=== PATIENT | female | born 1975 | race Caucasian/White ===

== ENCOUNTER 2018-01-16 12:09 | Observation (INO) ==
--- NOTE | 2018-01-16 12:53 | Emergency Department Note ---
Disposition Clinical Impression: PID (acute pelvic inflammatory disease), Sepsis Abdominal pain Qualifiers: Abdominal location: lower abdomen, unspecified Qualified Code(s): R10.30 - Lower abdominal pain, unspecified Disposition: Admitted As Inpatient Condition: Good Abdominal Pain HPI - General Chief Complaint: ED Abdominal Pain Stated Complaint: CT, LABS Time Seen by Provider: 01/16/18 12:18 Source: patient Mode of arrival: ambulatory Limitations: no limitations Nursing Notes Reviewed: Yes Vital Signs Reviewed: Yes - History of Present Illness HPI Narrative: Ms. Damon is a 42-year-old female presenting to the emergency department today from her PCP's office for abdominal pain. Abdominal pain began yesterday morning across her lower abdomen and suprapubic area; has also had low back pain the pain. Abdominal pain has been constant and nothing seems to make it better or worse; it's location hasn't changed since onset, characteristics of pain haven't changed. She reported suddenly not feeling well yesterday with diffuse body aches described as "flu-like." She reports fever of 101.8 last night. She has been able to tolerate food and water, but has occasional nausea, she has not vomited. This morning her abdominal pain has worsened in intensity. At her PCP's office there was some concern for a UTI but UA reportedly showed no evidence for this and PCP reportedly concerned about surgical abdomen. Denies urinary symptoms including dysuria, hematuria, pyuria , frequency, loss of bladder continence, sensation of incomplete bladder emptying. Reports last PO intake was a few crackers at 8:00 this morning. Reports h/o x 2 and tubal ligation 11 years ago; denies cholecystectomy or appendectomy. Consistency: intermittent Pain Scale: 6 - Related Data Previous Rx's Medication Instructions Recorded Levofloxacin [Levaquin] 500 mg PO DAILY #14 tablet 01/18/18 Oxycodone HCl/Acetaminophen 1 each PO Q6HR PRN 3 Days #12 01/18/18 [Percocet 5-325 mg Tablet] tablet metroNIDAZOLE [Flagyl] 500 mg PO DAILY #14 tablet 01/18/18 Allergies Allergy/AdvReac Type Severity Reaction Status Date / Time Penicillins Allergy Rash Verified 01/18/18 09:19 All systems ED: reviewed and negative except as stated. Review of Systems: As Per HPI Abdominal Pain PMH - Past Medical History Medical history: Reports: no medical history, non-contributory Female Surgical History: Reports: Psychiatric history: Reports: no psych history - Social History Smoking status: Never smoker Alcohol use: Reports: none Drug use: Reports: none Physical Exam - General Limitations: no limitations General appearance: alert, in no apparent distress - Head Head exam: normocephalic - Eye Eye exam: Present: normal appearance, PERRL. Absent: scleral icterus - Neck Neck exam: Present: normal inspection, full ROM - Chest Chest inspection: Present: normal inspection, symmetric chest wall rise - Respiratory Respiratory exam: Present: normal lung sounds bilaterally. Absent: respiratory distress, wheezes, accessory muscle use - Cardiovascular Cardiovascular exam: Present: normal rhythm, tachycardia, normal heart sounds - Abdominal Exam Abdominal exam: Present: soft, other. Absent: rigidity Abdominal tenderness: Present: diffuse Course Vital Signs Temperature 98.8 F 01/16/18 12:14 Pulse Rate 100 01/16/18 12:14 Respiratory Rate 18 01/16/18 12:14 Blood Pressure 105/74 01/16/18 12:14 O2 Sat by Pulse Oximetry 99 01/16/18 12:14 Temperature 99.4 F 01/17/18 11:01 Pulse Rate 92 01/17/18 11:01 Respiratory Rate 16 01/17/18 11:01 Blood Pressure 97/65 01/17/18 11:01 O2 Sat by Pulse Oximetry 99 01/17/18 11:01 Oxygen Delivery Oxygen Delivery Room Air Abdominal Pain - MDM Narrative Medical decision making narrative: UA shows no evidence for urinary tract infection. CT abdomen pelvis with IV contrast shows... ultrasound abd pelvis with Doppler ordered and is pending [facility] consulted (Destinee Zaragoza, reservations and ticketing agent) to evaluate patient for what appears to be hydrosalpinx and possible endometritis Gen. surgery (Dr. Jimenez) consultation to evaluate for possible developing appendicitis - Lab Data Result diagrams: 01/17/18 05:07 01/17/18 05:07 Lab Results 01/16/18 01/16/18 01/16/18 Range/Units 13:19 13:19 13:23 WBC 20.2 H (4.3-11.1) K/mcL RBC 4.58 (3.82-4.97) M/mcL Hgb 14.3 (11.5-15.4) g/dL Hct 40.8 (35.3-44.9) % MCV 89.1 (83.0-100.0) fL MCH 31.2 (28.0-33.3) pg MCHC 35.0 (31.6-35.5) g/dL RDW 12.1 (11.5-14.5) % Plt Count 174 (140-400) K/mcL MPV 11.8 (9.4-12.4) fL Immature Gran % 0.8 (0-4) % Seg Neutrophils % 88.1 % Lymphocytes % 4.6 % Monocytes % 6.4 % Eosinophils % 0.0 % Basophils % 0.1 % Neutrophils # 17.8 H (1.6-8.9) K/mcL Lymphocytes # 0.9 (0.6-4.6) K/mcL Monocytes # 1.3 (0.0-1.3) K/mcL Eosinophils # 0.0 (0.0-0.6) K/mcL Basophils # 0.0 (0.0-0.2) K/mcL Sodium 136 (136-145) mEq/L Potassium 3.3 L (3.5-5.1) mEq/L Chloride 103 (98-107) mEq/L Carbon Dioxide 22 L (23-29) mEq/L BUN 8 (6-20) mg/dL Creatinine 0.86 (0.60-1.20) mg/dL Est GFR ( Amer) > 60 (> 60) Est GFR (Non-Af Amer) > 60 (> 60) BUN/Creatinine Ratio 9 (6-26) Glucose 105 (70-105) mg/dL Calculated Osmolality 281 (280-300) Lactic Acid (0.5-2.2) mmol/L Calcium 9.6 (8.6-10.3) mg/dL Total Bilirubin 1.6 H (0.3-1.0) mg/dL Direct Bilirubin 0.3 H (0.0-0.2) mg/dL Indirect Bilirubin 1.3 H (0.0-1.2) mg/dL AST 14 (13-39) Units/L ALT 14 (7-52) Units/L Alkaline Phosphatase 55 (34-104) Units/L Serum Total Protein 7.7 (6.4-8.9) g/dL Albumin 4.7 (3.5-5.7) g/dL Globulin 3.0 (2.4-3.5) g/dL Albumin/Globulin Ratio 1.6 (1.1-2.2) Lipase 12 (11-82) Units/L Urine Color Yellow (Yellow) Urine Clarity Clear (Clear) Urine pH 6.5 (5.0-8.0) pH Units Ur Specific [place] 1.005 L (1.010-1.025) Urine Protein Negative (Neg-Trace) mg/dL Urine Glucose (UA) Normal (Normal) mg/dL Urine Ketones Trace H (Negative) mg/dL Urine Blood Trace H (Negative) Urine Nitrite Negative (Negative) Urine Bilirubin Negative (Negative) Urine Urobilinogen Normal (Normal) mg/dL Ur Leukocyte Esterase Negative (Negative) Urine Microscopic RBC 0-3 (0-3) per hpf Urine Microscopic WBC 0-3 (0-3) per hpf Ur Squamous Epith Cells Moderate H (None-Few) per lpf Urine Bacteria CERTIFIED PEDIATRIC NURSE PRACTITIONER Ur Culture Indicated? NO (NO) Meghan species DNA (Not Detect) Chlam trachomat DNA PCR (Not Detect) Gardnerella DNA Probe (Not Detect) N.gonorrhoeae DNA (PCR) (Not Detect) Trichomonas DNA Probe (Not Detect) 01/16/18 01/16/18 01/16/18 Range/Units 16:07 16:07 17:41 WBC (4.3-11.1) K/mcL RBC (3.82-4.97) M/mcL Hgb (11.5-15.4) g/dL Hct (35.3-44.9) % MCV (83.0-100.0) fL MCH (28.0-33.3) pg MCHC (31.6-35.5) g/dL RDW (11.5-14.5) % Plt Count (140-400) K/mcL MPV (9.4-12.4) fL Immature Gran % (0-4) % Seg Neutrophils % % Lymphocytes % % Monocytes % % Eosinophils % % Basophils % % Neutrophils # (1.6-8.9) K/mcL Lymphocytes # (0.6-4.6) K/mcL Monocytes # (0.0-1.3) K/mcL Eosinophils # (0.0-0.6) K/mcL Basophils # (0.0-0.2) K/mcL Sodium (136-145) mEq/L Potassium (3.5-5.1) mEq/L Chloride (98-107) mEq/L Carbon Dioxide (23-29) mEq/L BUN (6-20) mg/dL Creatinine (0.60-1.20) mg/dL Est GFR ( Amer) (> 60) Est GFR (Non-Af Amer) (> 60) BUN/Creatinine Ratio (6-26) Glucose (70-105) mg/dL Calculated Osmolality (280-300) Lactic Acid 1.6 (0.5-2.2) mmol/L Calcium (8.6-10.3) mg/dL Total Bilirubin (0.3-1.0) mg/dL Direct Bilirubin (0.0-0.2) mg/dL Indirect Bilirubin (0.0-1.2) mg/dL AST (13-39) Units/L ALT (7-52) Units/L Alkaline Phosphatase (34-104) Units/L Serum Total Protein (6.4-8.9) g/dL Albumin (3.5-5.7) g/dL Globulin (2.4-3.5) g/dL Albumin/Globulin Ratio (1.1-2.2) Lipase (11-82) Units/L Urine Color (Yellow) Urine Clarity (Clear) Urine pH (5.0-8.0) pH Units Ur Specific [place] (1.010-1.025) Urine Protein (Neg-Trace) mg/dL Urine Glucose (UA) (Normal) mg/dL Urine Ketones (Negative) mg/dL Urine Blood (Negative) Urine Nitrite (Negative) Urine Bilirubin (Negative) Urine Urobilinogen (Normal) mg/dL Ur Leukocyte Esterase (Negative) Urine Microscopic RBC (0-3) per hpf Urine Microscopic WBC (0-3) per hpf Ur Squamous Epith Cells (None-Few) per lpf Urine Bacteria Ur Culture Indicated? (NO) Meghan species DNA Not Detected (Not Detect) Chlam trachomat DNA PCR NOT DETECTED (Not Detect) Gardnerella DNA Probe Not Detected (Not Detect) N.gonorrhoeae DNA (PCR) NOT DETECTED (Not Detect) Trichomonas DNA Probe Not Detected (Not Detect)
[2018-01-16] MEDS ORDERED: Isovue-370 500 ML INFUS..BTL IV ONE (13:19)
[2018-01-16] MEDS ORDERED: Ondansetron 4 MG/2 ML VIAL IVP ONE (13:19)
[2018-01-16] MEDS ORDERED: *HR* FentaNYL (PF) 100 MCG/2 ML VIAL IVP ONE ×2 (13:19→15:27)
[2018-01-16] MEDS ORDERED: 0.9 % Sodium Chloride 1,000 ML IVC ONE ×2 (13:19→17:32)
[2018-01-16 13:35] LABS: Bilirubin,Urine Negative (Negative); Blood,Urine Trace (Negative); Clarity,Urine Clear (Clear); Color,Urine Yellow (Yellow); Glucose,Urine (UA) Normal (Normal); Ketones,Urine Trace mg/dL (Negative); Leukocyte Esterase,Urine Negative (Negative); Nitrite,Urine Negative (Negative); PH,Urine 6.5 pH Units (5.0-8.0); Protein,Urine Negative (Neg-Trace); Specific Gravity,Urine 1.005 (1.010-1.025); Urobilinogen,Urine Normal (Normal)
[2018-01-16 13:53] LABS: RBC,Urine 0-3 per hpf (0-3); Squamous Epithelial Cell,Urine Moderate per lpf (None-Few); WBC,Urine 0-3 per hpf (0-3)
[2018-01-16 14:02] LABS: Basophils % 0.1 %; Hematocrit 40.8 % (35.3-44.9); Hemoglobin 14.3 g/dL (11.5-15.4); Immature Granulocytes % 0.8 % (0-4); Lymphocytes # 0.9 K/mcL (0.6-4.6); Lymphocytes % 4.6 %; Mean Corpuscular Hemoglobin 31.2 pg (28.0-33.3); Mean Corpuscular Volume 89.1 fL (83.0-100.0); Mean Platelet Volume 11.8 fL (9.4-12.4); Monocytes # 1.3 K/mcL (0.0-1.3); Monocytes % 6.4 %; Neutrophils # 17.8 K/mcL (1.6-8.9); Platelet Count 174 K/mcL (140-400); Red Blood Count 4.58 M/mcL (3.82-4.97); Red Cell Distribution Width 12.1 % (11.5-14.5); Segmented Neutrophils % 88.1 %
[2018-01-16 14:36] LABS: Alanine Aminotransferase 14 Units/L (7-52); Albumin 4.7 g/dL (3.5-5.7); Albumin/Globulin Ratio 1.6 (1.1-2.2); Alkaline Phosphatase 55 Units/L (34-104); Aspartate Amino Transferase 14 Units/L (13-39); BUN/Creatinine Ratio 9 (6-26); Bilirubin,Direct 0.3 mg/dL (0.0-0.2); Bilirubin,Indirect 1.3 mg/dL (0.0-1.2); Bilirubin,Total 1.6 mg/dL (0.3-1.0); Blood Urea Nitrogen 8 mg/dL (6-20); Calcium 9.6 mg/dL (8.6-10.3); Carbon Dioxide 22 mEq/L (23-29); Chloride 103 mEq/L (98-107); Glucose 105 mg/dL (70-105); Lipase 12 Units/L (11-82); Osmolality,Calculated 281 (280-300); Potassium 3.3 mEq/L (3.5-5.1); Sodium 136 mEq/L (136-145); Total Protein 7.7 g/dL (6.4-8.9); eGFR For African Americans > 60 (> 60); eGFR For Non-African Americans > 60 (> 60)
--- NOTE | 2018-01-16 16:27 | OB/GYN Consult Note ---
Date of Encounter: 01/16/18 Time of Encounter: 16:24 Assessment and Plan (1) Pelvic pain Current Visit: Yes Status: Acute Pelvic U/S confirmed bilateral hydrosalpinx Admit for IV antibiotics Recheck CBC in am (2) Vaginal discharge Current Visit: Yes Status: Acute GC/CL swab collected and sent Vaginosis panel collected and sent - negative (3) Endometritis Current Visit: Yes Status: Acute Clindamycin q 8 hr Gentamycin IVPB Recheck CBC in am (4) Hydrosalpinx Current Visit: Yes Status: Acute History of Present Illness Consult date: 01/16/18 Requesting physician: Morenita Bar Reason for consult: pelvic pain Chief complaint: pelvic pain History of present illness: Ms. Damon is a 42-year-old female who presents with complaints of lower abdominal/pelvic pain that began at 5 AM yesterday morning. She denies known history of sexual transmitted infections. She denies vaginal discharge. She reports last intercourse was 2 nights ago. She has been monogamous with her for the past several years. She states when the pain began it was on the lower right side and she thought that she was having ovulatory pains as she sometimes does. However, as the day progressed the pain increased in severity. She reports severe pain with movement, ambulation. She states that the only thing that has relieved her pain is the fentanyl the emergency department gave her. Past Med Surg Social Fam HX - Past Medical History Medical history: no medical history, non-contributory Psychiatric history: no psych history - Social History Smoking Status: Never smoker Smokeless Tobacco Status: No Alcohol use: none Drug use: none Medications and Allergies No Known Home Drugs 01/16/18 [History] 3 Allergy/AdvReac Type Severity Reaction Status Date / Time Penicillins Allergy Rash Verified 01/16/18 12:17 Review of Systems All Systems: reviewed and no additional remarkable complaints except as stated Exam - Vital Signs Vital signs: Initial Vital Signs Temp Pulse Resp BP Pulse Ox 98.8 F 100 18 105/74 99 01/16/18 12:14 01/16/18 12:14 01/16/18 12:14 01/16/18 12:14 01/16/18 12:14 - Constitutional Constitutional: well developed, well nourished, average body habitus, moderate distress - HEENT HEENT: Normocephaly, Mucus Membranes Moist - Neck Neck exam: full ROM - Lungs Respiratory exam: CTAB - Cardiovascular Cardiovascular exam: RRR, +S1, +S2 - Abdomen Abdomen: Present: bowel sounds normal, guarding noted - Extremities Extremities exam: normal inspection, radial pulses palpable and symmetrical - Vulva Vulva: bilateral: normal - Vagina Vagina: Present: discharge - Cervix Cervix: Present: discharge - Uterus Uterus exam: Present: normal size, tender - Adnexa Adnexa: bilateral: tenderness - Anus/Rectum Anus/Rectum: Present: normal perianal skin Results Result Diagrams: 01/16/18 13:19 01/16/18 13:19 Abnormal lab results WBC 20.2 K/mcL (4.3-11.1) H 01/16/18 13:19 Neutrophils # 17.8 K/mcL (1.6-8.9) H 01/16/18 13:19 Potassium 3.3 mEq/L (3.5-5.1) L 01/16/18 13:19 Carbon Dioxide 22 mEq/L (23-29) L 01/16/18 13:19 Total Bilirubin 1.6 mg/dL (0.3-1.0) H 01/16/18 13:19 Direct Bilirubin 0.3 mg/dL (0.0-0.2) H 01/16/18 13:19 Indirect Bilirubin 1.3 mg/dL (0.0-1.2) H 01/16/18 13:19 Ur Specific [place] 1.005 (1.010-1.025) L 01/16/18 13:23 Urine Ketones Trace mg/dL (Negative) H 01/16/18 13:23 Urine Blood Trace (Negative) H 01/16/18 13:23 Ur Squamous Epith Cells Moderate per lpf (None-Few) H 01/16/18 13:23 All other labs normal. Consult Discharge Plan - Plan Referrals: aDniel Coronado MD [Primary Care Provider] -
[2018-01-16] MEDS ORDERED: Gentamicin 250 MG in 0.9 % Sodium Chloride 100 ML IVPB ONE (16:52)
--- NOTE | 2018-01-16 17:08 | General Surg History&Physical ---
<Mark Paulson - Last Filed: 01/16/18 17:00> Date of Encounter: 01/16/18 Time of Encounter: 04:30 Assessment and Plan (1) Pelvic pain Status: Acute CT of the abdomen/pelvis reveals hydrosalpinx with possible left-sided superimposed infection/pyosalpinx and PID. In addition, CT is also suggestive of endometritis most likely secondary to PID. Patient was put on clindamycin and gentimicn in the ED. She does meet Sepsis criteria due to WBC of 20.2, tachycardia at 111, and suspected PID as source of infection . No significant inflammatory changes seen with the appendix. - Continue IV clindamycin and gentamicin. - Serial abdominal exams. - G/C labs pending. - NPO - IV fluids. - Pain control with toradol IV and oxycodone SL. - Control nausea with zofran. Abdomen/Pelvis CT 01/16/18 13:19 IMPRESSION: 1. Dilated tortuous curvilinear structures in the bilateral adnexal regions significantly more pronounced on the left where there is associated wall/rim enhancement and adjacent inflammatory stranding. Findings most consistent with hydrosalpinx with possible left-sided superimposed infection/pyosalpinx and PID. Inflammatory changes extend to involve the adjacent left ovary. Recommend further evaluation with pelvic ultrasound. 2. Appendix is relatively fluid-filled and mildly dilated along its mid to distal aspect where there is slight wall thickening/enhancement but no significant adjacent inflammatory stranding. Findings may represent early acute appendicitis in appropriate clinical setting. D/ / Sean Jacobs MD / Sean Jacobs MD Interpreting Provider: Sean Jacobs MD (2) Hypokalemia Status: Acute Potassium level at 3.3. - 40 meq potassium IV. (3) DVT prophylaxis Status: Acute SCDs. History of Present Illness Chief complaint: Abdominal pain HPI: Ms. Damon is a 42 year old female with no significant PMH and a PSH of two c- sections (last one 2006) with b/l tubal ligation that presents for abdominal pain and nausea. Patient says pain started 5:00 AM yesterday morning. She describes it as an achy pain which is exacerbated with movement. She says it is located in the right and left lower quadrant, with the R worse than the left. She rates the pain as a 7/10 in severity. She admits to nausea but denies any vomiting. She denies any dysuria or hematuria. She denies any vaginal discharge. Admits to constipation for past 2 days. She admits to a fever of 101.8. Denies any chest pain or shortness of breath. Past Med Surg Social Fam HX - Past Medical History Medical history: no medical history, non-contributory Psychiatric history: no psych history - Social History Smoking Status: Never smoker Smokeless Tobacco Status: No Alcohol use: none Drug use: none Medications and Allergies Levofloxacin [Levaquin] 500 mg PO DAILY #14 tablet 01/18/18 [Rx] Oxycodone HCl/Acetaminophen [Percocet 5-325 mg Tablet] 1 each PO Q6HR PRN 3 Days #12 tablet 01/18/18 [Rx] metroNIDAZOLE [Flagyl] 500 mg PO DAILY #14 tablet 01/18/18 [Rx] 3 Allergy/AdvReac Type Severity Reaction Status Date / Time Penicillins Allergy Rash Verified 01/18/18 09:19 Review of Systems All systems PM: The remainder of the systems were reviewed and are negative - Constitutional chills, fever(s) - Cardiovascular no chest pain, no dyspnea, no dyspnea on exertion - Respiratory no dyspnea - Gastrointestinal abdominal pain, constipation, nausea, no diarrhea, no hematochezia, no loose stools, no melena, no vomiting - Genitourinary Genitourinary: no dysuria, no hematuria, no vaginal discharge General Surgery Exam VITAL SIGNS: Reviewed. See [facility] GENERAL: no apparent distress. HEENT: [Normocephalic, PER, EOMi, oropharynx pink/moist, no JVD noted.] CV: b/l rad pulses 2+, RRR, no murmurs or gallops, no JVD RESPIRATORY: CTAB without wheezes, rales, or rhonchi ABD: soft, moderate tenderness in the right and left lower quadrant along with suprapubic tenderness, negative bazan's sign, negative McBurney's, negative obturator sign, no rebound/guarding/rigidity, no peritoneal signs. B/L adnexal tenderness with the R worse than the L. Normal bowel sounds. EXTREMITY: grossly normal motor function, no pedal edema, peripheral pulses 2+ b /l NEUROLOGIC EXAM: AOx3, obeys commands, no speech deficits. PSYCHIATRIC: normal mood and affect SKIN: no gross lesions, rashes, or skin changes Initial Vital Signs Temp Pulse Resp BP Pulse Ox 98.8 F 100 18 105/74 99 01/16/18 12:14 01/16/18 12:14 01/16/18 12:14 01/16/18 12:14 01/16/18 12:14 - General physical appearance well developed, well nourished, no distress - Respiratory normal expansion, normal respiratory effort, clear to percussion, clear to auscultation - Cardiovascular Cardiovascular exam: Present: RRR, 15, 16 - Abdomen Abdomen general surgery: Present: bowel sounds present, soft, tender Abdominal Tenderness: Present: RLQ, LLQ, suprapubic Results - Labs 01/16/18 13:19 01/16/18 13:19 Abnormal lab results WBC 20.2 K/mcL (4.3-11.1) H 01/16/18 13:19 Neutrophils # 17.8 K/mcL (1.6-8.9) H 01/16/18 13:19 Potassium 3.3 mEq/L (3.5-5.1) L 01/16/18 13:19 Carbon Dioxide 22 mEq/L (23-29) L 01/16/18 13:19 Total Bilirubin 1.6 mg/dL (0.3-1.0) H 01/16/18 13:19 Direct Bilirubin 0.3 mg/dL (0.0-0.2) H 01/16/18 13:19 Indirect Bilirubin 1.3 mg/dL (0.0-1.2) H 01/16/18 13:19 Ur Specific [place] 1.005 (1.010-1.025) L 01/16/18 13:23 Urine Ketones Trace mg/dL (Negative) H 01/16/18 13:23 Urine Blood Trace (Negative) H 01/16/18 13:23 Ur Squamous Epith Cells Moderate per lpf (None-Few) H 01/16/18 13:23 Diabetes panel 01/16/18 Range/Units 13:19 Sodium 136 (136-145) mEq/L Potassium 3.3 L (3.5-5.1) mEq/L Chloride 103 (98-107) mEq/L Carbon Dioxide 22 L (23-29) mEq/L BUN 8 (6-20) mg/dL Creatinine 0.86 (0.60-1.20) mg/dL Glucose 105 (70-105) mg/dL Calcium 9.6 (8.6-10.3) mg/dL AST 14 (13-39) Units/L ALT 14 (7-52) Units/L Alkaline Phosphatase 55 (34-104) Units/L Albumin 4.7 (3.5-5.7) g/dL Calcium panel 01/16/18 Range/Units 13:19 Calcium 9.6 (8.6-10.3) mg/dL Albumin 4.7 (3.5-5.7) g/dL Pituitary panel 01/16/18 Range/Units 13:19 Sodium 136 (136-145) mEq/L Potassium 3.3 L (3.5-5.1) mEq/L Chloride 103 (98-107) mEq/L Carbon Dioxide 22 L (23-29) mEq/L BUN 8 (6-20) mg/dL Creatinine 0.86 (0.60-1.20) mg/dL Glucose 105 (70-105) mg/dL Calcium 9.6 (8.6-10.3) mg/dL Adrenal panel 01/16/18 Range/Units 13:19 Sodium 136 (136-145) mEq/L Potassium 3.3 L (3.5-5.1) mEq/L Chloride 103 (98-107) mEq/L Carbon Dioxide 22 L (23-29) mEq/L BUN 8 (6-20) mg/dL Creatinine 0.86 (0.60-1.20) mg/dL Glucose 105 (70-105) mg/dL Calcium 9.6 (8.6-10.3) mg/dL Total Bilirubin 1.6 H (0.3-1.0) mg/dL AST 14 (13-39) Units/L ALT 14 (7-52) Units/L Alkaline Phosphatase 55 (34-104) Units/L Albumin 4.7 (3.5-5.7) g/dL All other labs normal. <Mikey Jimenez T - Last Filed: 01/19/18 08:46> Date of Encounter: 01/16/18 History of Present Illness HPI: Ms. Damon is a 42 year old female Past Med Surg Social Fam HX - Family History Father Family Member Ethnicity: Non- Living Status: Still Living Hx Family Cardiac Disorders: No Hx Family Respiratory Disorders: No Hx Family Cancer: No Hx Family GI Disorders: No Hx Family Genitourinary Disorders: No Hx Family Endocrine Disorder: Yes (Diabetic) Hx Family Musculoskeletal Disorders: No Hx Family Neuromuscular Disorders: No Hx Family Neurologic Disorders: No Hx Family HEENT Disorders: No Hx Family Autoimmune Disorders: No Hx Family Reproductive Disorders: No Hx Family Psychosocial Disorders: No Mother Family Member Ethnicity: Non- Living Status: Still Living Hx Family Respiratory Disorders: Yes (COPD) Review of Systems All systems PM: The remainder of the systems were reviewed and are negative General Surgery Exam Initial Vital Signs Temp Pulse Resp BP Pulse Ox 98.8 F 100 18 105/74 99 01/16/18 12:14 01/16/18 12:14 01/16/18 12:14 01/16/18 12:14 01/16/18 12:14 Results - Labs 01/17/18 05:07 01/17/18 05:07 Abnormal lab results WBC 12.6 K/mcL (4.3-11.1) H 01/17/18 05:07 RBC 3.70 M/mcL (3.82-4.97) L 01/17/18 05:07 Hgb 11.2 g/dL (11.5-15.4) L D 01/17/18 05:07 Hct 34.0 % (35.3-44.9) L 01/17/18 05:07 Plt Count 125 K/mcL (140-400) L 01/17/18 05:07 Neutrophils # 10.6 K/mcL (1.6-8.9) H 01/17/18 05:07 Chloride 114 mEq/L (98-107) H 01/17/18 05:07 Carbon Dioxide 17 mEq/L (23-29) L 01/17/18 05:07 POC Glucose 66 mg/dL (70-99) L 01/17/18 05:45 Calcium 7.5 mg/dL (8.6-10.3) L 01/17/18 05:07 Total Bilirubin 1.6 mg/dL (0.3-1.0) H 01/16/18 13:19 Direct Bilirubin 0.3 mg/dL (0.0-0.2) H 01/16/18 13:19 Indirect Bilirubin 1.3 mg/dL (0.0-1.2) H 01/16/18 13:19 Ur Specific [place] 1.005 (1.010-1.025) L 01/16/18 13:23 Urine Ketones Trace mg/dL (Negative) H 01/16/18 13:23 Urine Blood Trace (Negative) H 01/16/18 13:23 Ur Squamous Epith Cells Moderate per lpf (None-Few) H 01/16/18 13:23 All other labs normal. - Attending Attestation I examined this patient and my medical decision-making was reviewed with the Resident Physician. I agree with the documented findings, disposition and treatment plan as described except to the extent set forth below. Weighted in the emergency room. I personally reviewed the CAT scan of the abdomen. She has a very swollen uterus and hydrosalpinx. Findings are not consistent with appendicitis I spoke with [employer]. I believe that the patient has a uterine and fallopian tube infection. She will be treated with antibiotics and serial physical examinations. Mikey Jimenez MD FACS
[2018-01-16 17:34] LABS: Candida DNA Not Detected (Not Detect); Gardnerella DNA Not Detected (Not Detect); Trichomonas DNA Not Detected (Not Detect)
[2018-01-16] MEDS ORDERED: Ondansetron ODT 4 MG TAB.RAPDIS SL PRN (17:37)
[2018-01-16] MEDS ORDERED: Ibuprofen 400 MG TABLET PO PRN (17:41)
[2018-01-16] MEDS ORDERED: *HR* HYDROcodone/Acet 5/325 mg TABLET PO PRN (17:41)
[2018-01-16] MEDS ORDERED: Naloxone 0.4 MG/ML INJ IVP PRN ×2 (17:41→17:44)
[2018-01-16] MEDS ORDERED: OXYCODONE Oral CONC 10 MG/0.5 ML ORAL.SYG SL PRN (17:44)
[2018-01-16] MEDS ORDERED: Ketorolac 15 MG/ML VIAL IVP PRN (17:44)
[2018-01-16] MEDS ORDERED: 0.9 % Sodium Chloride 1,000 ML IVC SCH (17:45)
--- NOTE | 2018-01-16 18:08 | Emergency Department Note ---
Disposition Clinical Impression: PID (acute pelvic inflammatory disease) Abdominal pain Qualifiers: Abdominal location: lower abdomen, unspecified Qualified Code(s): R10.30 - Lower abdominal pain, unspecified Sepsis Qualifiers: Sepsis type: sepsis due to unspecified organism Qualified Code(s): A41.9 - Sepsis, unspecified organism Disposition: Admitted As Inpatient Condition: Good Referrals: Danile Coronado MD [Primary Care Provider] - Abdominal Pain HPI - General Chief Complaint: ED Abdominal Pain Stated Complaint: CT, LABS Time Seen by Provider: 01/16/18 12:18 Source: patient - History of Present Illness Pain Scale: 6 - Related Data Home Medications Medication Instructions Recorded Confirmed No Known Home Drugs 01/16/18 01/16/18 Allergies Allergy/AdvReac Type Severity Reaction Status Date / Time Penicillins Allergy Rash Verified 01/16/18 12:17 Abdominal Pain PMH - Past Medical History Medical history: Reports: no medical history, non-contributory Female Surgical History: Reports: Psychiatric history: Reports: no psych history - Social History Smoking status: Never smoker Alcohol use: Reports: none Drug use: Reports: none Physical Exam - General Limitations: no limitations General appearance: alert, in no apparent distress Course Vital Signs Temperature 98.8 F 01/16/18 12:14 Pulse Rate 100 01/16/18 12:14 Respiratory Rate 18 01/16/18 12:14 Blood Pressure 105/74 01/16/18 12:14 O2 Sat by Pulse Oximetry 99 01/16/18 12:14 Temperature 98.8 F 01/16/18 12:14 Pulse Rate 111 01/16/18 15:36 Respiratory Rate 18 01/16/18 15:36 Blood Pressure 109/71 01/16/18 15:36 O2 Sat by Pulse Oximetry 95 01/16/18 15:36 Oxygen Delivery Oxygen Delivery Room Air Abdominal Pain - Lab Data Result diagrams: 01/16/18 13:19 01/16/18 13:19 Lab Results 01/16/18 01/16/18 01/16/18 Range/Units 13:19 13:19 13:23 WBC 20.2 H (4.3-11.1) K/mcL RBC 4.58 (3.82-4.97) M/mcL Hgb 14.3 (11.5-15.4) g/dL Hct 40.8 (35.3-44.9) % MCV 89.1 (83.0-100.0) fL MCH 31.2 (28.0-33.3) pg MCHC 35.0 (31.6-35.5) g/dL RDW 12.1 (11.5-14.5) % Plt Count 174 (140-400) K/mcL MPV 11.8 (9.4-12.4) fL Immature Gran % 0.8 (0-4) % Seg Neutrophils % 88.1 % Lymphocytes % 4.6 % Monocytes % 6.4 % Eosinophils % 0.0 % Basophils % 0.1 % Neutrophils # 17.8 H (1.6-8.9) K/mcL Lymphocytes # 0.9 (0.6-4.6) K/mcL Monocytes # 1.3 (0.0-1.3) K/mcL Eosinophils # 0.0 (0.0-0.6) K/mcL Basophils # 0.0 (0.0-0.2) K/mcL Sodium 136 (136-145) mEq/L Potassium 3.3 L (3.5-5.1) mEq/L Chloride 103 (98-107) mEq/L Carbon Dioxide 22 L (23-29) mEq/L BUN 8 (6-20) mg/dL Creatinine 0.86 (0.60-1.20) mg/dL Est GFR ( Amer) > 60 (> 60) Est GFR (Non-Af Amer) > 60 (> 60) BUN/Creatinine Ratio 9 (6-26) Glucose 105 (70-105) mg/dL Calculated Osmolality 281 (280-300) Calcium 9.6 (8.6-10.3) mg/dL Total Bilirubin 1.6 H (0.3-1.0) mg/dL Direct Bilirubin 0.3 H (0.0-0.2) mg/dL Indirect Bilirubin 1.3 H (0.0-1.2) mg/dL AST 14 (13-39) Units/L ALT 14 (7-52) Units/L Alkaline Phosphatase 55 (34-104) Units/L Serum Total Protein 7.7 (6.4-8.9) g/dL Albumin 4.7 (3.5-5.7) g/dL Globulin 3.0 (2.4-3.5) g/dL Albumin/Globulin Ratio 1.6 (1.1-2.2) Lipase 12 (11-82) Units/L Urine Color Yellow (Yellow) Urine Clarity Clear (Clear) Urine pH 6.5 (5.0-8.0) pH Units Ur Specific [place] 1.005 L (1.010-1.025) Urine Protein Negative (Neg-Trace) mg/dL Urine Glucose (UA) Normal (Normal) mg/dL Urine Ketones Trace H (Negative) mg/dL Urine Blood Trace H (Negative) Urine Nitrite Negative (Negative) Urine Bilirubin Negative (Negative) Urine Urobilinogen Normal (Normal) mg/dL Ur Leukocyte Esterase Negative (Negative) Urine Microscopic RBC 0-3 (0-3) per hpf Urine Microscopic WBC 0-3 (0-3) per hpf Ur Squamous Epith Cells Moderate H (None-Few) per lpf Urine Bacteria [employer] Ur Culture Indicated? NO (NO) Meghan species DNA (Not Detect) Gardnerella DNA Probe (Not Detect) Trichomonas DNA Probe (Not Detect) 01/16/18 Range/Units 16:07 WBC (4.3-11.1) K/mcL RBC (3.82-4.97) M/mcL Hgb (11.5-15.4) g/dL Hct (35.3-44.9) % MCV (83.0-100.0) fL MCH (28.0-33.3) pg MCHC (31.6-35.5) g/dL RDW (11.5-14.5) % Plt Count (140-400) K/mcL MPV (9.4-12.4) fL Immature Gran % (0-4) % Seg Neutrophils % % Lymphocytes % % Monocytes % % Eosinophils % % Basophils % % Neutrophils # (1.6-8.9) K/mcL Lymphocytes # (0.6-4.6) K/mcL Monocytes # (0.0-1.3) K/mcL Eosinophils # (0.0-0.6) K/mcL Basophils # (0.0-0.2) K/mcL Sodium (136-145) mEq/L Potassium (3.5-5.1) mEq/L Chloride (98-107) mEq/L Carbon Dioxide (23-29) mEq/L BUN (6-20) mg/dL Creatinine (0.60-1.20) mg/dL Est GFR ( Amer) (> 60) Est GFR (Non-Af Amer) (> 60) BUN/Creatinine Ratio (6-26) Glucose (70-105) mg/dL Calculated Osmolality (280-300) Calcium (8.6-10.3) mg/dL Total Bilirubin (0.3-1.0) mg/dL Direct Bilirubin (0.0-0.2) mg/dL Indirect Bilirubin (0.0-1.2) mg/dL AST (13-39) Units/L ALT (7-52) Units/L Alkaline Phosphatase (34-104) Units/L Serum Total Protein (6.4-8.9) g/dL Albumin (3.5-5.7) g/dL Globulin (2.4-3.5) g/dL Albumin/Globulin Ratio (1.1-2.2) Lipase (11-82) Units/L Urine Color (Yellow) Urine Clarity (Clear) Urine pH (5.0-8.0) pH Units Ur Specific [place] (1.010-1.025) Urine Protein (Neg-Trace) mg/dL Urine Glucose (UA) (Normal) mg/dL Urine Ketones (Negative) mg/dL Urine Blood (Negative) Urine Nitrite (Negative) Urine Bilirubin (Negative) Urine Urobilinogen (Normal) mg/dL Ur Leukocyte Esterase (Negative) Urine Microscopic RBC (0-3) per hpf Urine Microscopic WBC (0-3) per hpf Ur Squamous Epith Cells (None-Few) per lpf Urine Bacteria Ur Culture Indicated? (NO) Meghan species DNA Not Detected (Not Detect) Gardnerella DNA Probe Not Detected (Not Detect) Trichomonas DNA Probe Not Detected (Not Detect) Attestation Statement - Attestation Attestation: I, Brandt Gutierrez, examined this patient and my medical decision-making was reviewed with the CAR MECHANIC/PA/Advanced Practice Nurse/Resident Physician. I agree with the documented findings, disposition and treatment plan as described except to the extent set forth below. 42-year-old female presents emergency department for further evaluation of abdominal pain. Patient was sent by her primary care provider for concerns of lower abdominal pain to rule out appendicitis. Patient has tenderness to palpation of the bilateral lower abdomen as well as the suprapubic region. Tenderness seems to localize to the right lower quadrant. CT of the abdomen and pelvis was obtained which showed a significantly enlarged uterus with hydrosalpinx. The appendix was mildly fluid filled and had mild edema however this is likely associated with the pathology of the uterus. We consult both surgery and OB who evaluated the patient in the emergency department. Surgery stated the appendix likely has secondary changes from the uterine pathology. OB performed a pelvic exam which showed a diffuse amount of discharge from the cervix. They feel like this is likely more endometritis and recommended antibiotics. Patient meets septic criteria and she was started on clindamycin and gentamicin. Patient will be admitted to the hospital for further care and evaluation of endometriosis versus PID
--- NOTE | 2018-01-16 20:04 | Internal Med History&Physical ---
<Madi Ndiaye - Last Filed: 01/16/18 21:35> Date of Encounter: 01/16/18 Time of Encounter: 19:56 Internal Medicine - H&P: HPI Chief complaint: suprapubic abdominal pain Admitted From: Home Plans for Post Hospital Care: Home History of present illness: Ms. Damon is a 42 year old female w/ pmh of , 2 c-sections last in 2006, bilateral tubal ligation presents with constant centrally located suprapubic dull aching 5/10 pain at rest that started at 5 am yesterday w/ intermittent 10/ 10 sharp pain with movement. Patient last intercourse was 2 days ago, and patient states that she has remained monogomous with her . She denies history of STI. Patient states that she believes that she may have had multiple UTI's in the past that have gone untreated. Patient states that she's not had any complications in her pregnancies. Her first was because fetus was too large, and second was because she previously had a c- section. Patient admits to associated subjective fever, nausea, 2 days of constipation, abdominal fullness, diaphoresis. Patient denies chest pain, shortness of breath hematuria, dysuria, emesis, hematemesis,diarrhea, vaginal discharge. Past Med Surg Social Fam HX - Past Medical History Medical history: no medical history, non-contributory Psychiatric history: no psych history - Social History Smoking Status: Never smoker Smokeless Tobacco Status: No Alcohol use: none Drug use: none Internal Medicine - H&P: Meds No Known Home Drugs 01/16/18 [History] 3 Allergy/AdvReac Type Severity Reaction Status Date / Time Penicillins Allergy Rash Verified 01/16/18 12:17 All Systems PM: A 10-system review of systems was performed and is negative for pertinent findings except as documented above in the HPI. - Constitutional Constitutional: excessive sweating, fever(s), no chills, no night sweats - EENT Eyes: no change in vision, no discharge, no pain, no photophobia Ears: no ear discharge, no ear pain, no tinnitus Nose, mouth and throat: no dysphagia, no nasal discharge, no neck pain, no sore throat - Cardiovascular Cardiovascular ROS IM: no chest pain, no diaphoresis, no dyspnea, no lightheadedness, no palpitations, no syncope - Respiratory Respiratory: no cough, no dyspnea, no hemoptysis, no dyspnea on exertion, no wheezing, no excessive phlegm production - Gastrointestinal Gastrointestinal: constipation, no abdominal pain, no diarrhea, no excessive flatus, no hematemesis, no hematochezia, no melena, no nausea, no vomiting - Genitourinary Genitourinary: no abnormal vaginal bleeding, no change in urinary stream, no difficulty conceiving, no difficulty urinating, no difficulty voiding, no dyspareunia, no dysuria, no flank pain, no genital lesions, no genital pruritis , no hematuria, no nocturia, no sexual dysfunction, no urinary frequency, no urinary hesitancy, no urinary incontinence, no urinary urgency, no vaginal discharge, no vaginal dryness, no vaginal odor, no vaginal pruritis - Musculoskeletal Musculoskeletal ROS IM: no numbness, no tingling - Integumentary Integumentary IM: no rash, no unusual bruising - Neurological Neurological ROS: no confusion, no convulsions, no focal weakness, no numbness, no tingling, no tremor(s) - Hematologic/Lymphatic Hematologic/Lymphatic: no easy bruising - Constitutional Vitals: Temp Pulse Resp BP Pulse Ox 103 F H 111 16 95/64 99 01/16/18 19:15 01/16/18 19:15 01/16/18 19:15 01/16/18 19:15 01/16/18 19:15 General appearance: Present: cooperative, mild distress, A&O X 3, answers questions appropriately - Head Head exam: Present: atraumatic, normocephalic - Eye Eye exam: Present: PERRL, conjuntiva pink, sclera anicteric Pupils: Present: PERRL - Neck Neck exam general surgery: Present: supple, trachea midline. Absent: lymphadenopathy - Respiratory Respiratory exam: Present: CTAB. Absent: accessory muscle use, chest wall tenderness, decreased breath sounds, prolonged expiratory phase, rales, respiratory distress, rhonchi, stridor, wheezes, tachypnea - Cardiovascular Cardiovascular exam: Present: tachycardia. Absent: diastolic murmur, gallop, rubs, systolic murmur - GI/Abdominal GI/Abdominal exam: Present: guarding (voluntary), hypoactive bowel sounds, soft , tenderness (RUQ, RLQ), no peritoneal signs. Absent: distended, hernia, mass, rebound, rigid - Extremities Exam Extremities exam: Present: warm, radial pulses palpable and symmetrical. Absent : calf tenderness, cyanotic, pedal edema, tenderness - Neurological Exam Neurological exam: Present: alert, CN II-XII intact, oriented X3, no focal deficits, strengths equal and symetr throughout. Absent: motor sensory deficit , pronater drift, facial droop, speech deficit - Skin Skin exam: Present: dry, intact Internal Med - H&P Results - Labs CBC & Chem 7: 01/16/18 13:19 01/16/18 13:19 - Assessment and plan (1) Pelvic pain Current Visit: Yes Status: Acute Assessment and plan: bilateral hydrosalpinx confirmed, possibly secondary to PID/STI. Patient currently meets SIRS criteria (febrile, tachycardic, borderline hypotension, leukocytosis) MANAGER LOCATION and gen Surg consulted. CT abd - inflammation and stranding most consistent with hydrosalpinx w/ possible left-sided superimposed infection/ pyosalpinx and PID. Pelvic U/S confirmed bilateral hydrosalpinx. Vaginosis, jeremiah, chlamydia, [place], gonor, trich negative. - GC/CL swab - pending - continue abx (clindamycin + Gentamycin) per MANAGER LOCATION - per surgery, NPO - serial abd exams - closely follow vitals - continue IVF - per surgery, pain control w/ toradol and oxycodone and nausea control with zofran (2) Sepsis Current Visit: Yes Status: Acute Assessment and plan: see above Qualifiers: Sepsis type: sepsis due to unspecified organism Qualified Code(s): A41.9 - Sepsis, unspecified organism (3) Hydrosalpinx Current Visit: Yes Status: Acute Assessment and plan: see above (4) Hypokalemia Current Visit: Yes Status: Acute Assessment and plan: mildly decreased on presentation, replaced in ED. Will recheck in the AM (5) DVT prophylaxis Current Visit: Yes Status: Acute Assessment and plan: EPCD ordered by surgery (6) Disease of appendix, unspecified Current Visit: Yes Status: Acute Assessment and plan: CT abd - appendix is relatively fluid-filled and mildly dilated but no significant inflammatory stranding. may represent early acute appendicitis. surgery is following. - Time Spent With Patient Total time spent is greater than 50% in coordination of care (as documented) at patient's floor/unit and/or counseling patient: <Frederick Tovar P - Last Filed: 01/16/18 22:17> Date of Encounter: 01/16/18 Internal Medicine - H&P: HPI History of present illness: Ms. Damon is a 42 year old female Past Med Surg Social Fam HX - Family History Father Family Member Ethnicity: Non- Living Status: Still Living Hx Family Cardiac Disorders: No Hx Family Respiratory Disorders: No Hx Family Cancer: No Hx Family GI Disorders: No Hx Family Genitourinary Disorders: No Hx Family Endocrine Disorder: Yes (Diabetic) Hx Family Musculoskeletal Disorders: No Hx Family Neuromuscular Disorders: No Hx Family Neurologic Disorders: No Hx Family HEENT Disorders: No Hx Family Autoimmune Disorders: No Hx Family Reproductive Disorders: No Hx Family Psychosocial Disorders: No Mother Family Member Ethnicity: Non- Living Status: Still Living Hx Family Respiratory Disorders: Yes (COPD) All Systems PM: A 10-system review of systems was performed and is negative for pertinent findings except as documented above in the HPI. - Constitutional Vitals: Temp Pulse Resp BP Pulse Ox 99.9 F H 104 15 94/64 96 01/16/18 21:19 01/16/18 21:19 01/16/18 21:19 01/16/18 21:19 01/16/18 21:19 Internal Med - H&P Results - Labs CBC & Chem 7: 01/16/18 13:19 01/16/18 13:19 - Attending Attestation I examined this patient and my medical decision-making was reviewed with the Resident Physician. I agree with the documented findings, disposition and treatment plan as described except to the extent set forth below. Seen and examined. Chart reviewed. Young female, evaluated by primary care physician for abdominal pain. Suspicion for surgical abdomen: That is the reason patient was referred to this hospital. Evaluated in the emergency room. CT abdomen: Endometritis/fluid-filled appendix. [employer] INVESTIGATOR/surgery on the board. We will follow the recommendation. - Assessment and plan (1) Pelvic pain Current Visit: Yes Status: Acute (2) DVT prophylaxis Current Visit: Yes Status: Acute (3) Hypokalemia Current Visit: Yes Status: Acute (4) Sepsis Current Visit: Yes Status: Acute Qualifiers: Sepsis type: sepsis due to unspecified organism Qualified Code(s): A41.9 - Sepsis, unspecified organism (5) Hydrosalpinx Current Visit: Yes Status: Acute (6) Disease of appendix, unspecified Current Visit: Yes Status: Acute - Time Spent With Patient Total time spent is greater than 50% in coordination of care (as documented) at patient's floor/unit and/or counseling patient:
[2018-01-16] MEDS: Clindamycin 900 MG/50 ML 900 MG/50 ML IV.SOLN IVPB SCH (21:13)
[2018-01-17] MEDS ORDERED: Clindamycin 900 MG/50 ML 900 MG/50 ML IV.SOLN IVPB SCH
[2018-01-17] MEDS: Ketorolac 30 MG/ML VIAL IVP PRN ×2 (00:56→12:12)
[2018-01-17 05:37] LABS: Basophils % 0.2 %; Eosinophils % 0.1 %; Lymphocytes % 7.9 %; Mean Corpuscular HGB Conc 32.9 g/dL (31.6-35.5); Mean Corpuscular Hemoglobin 30.3 pg (28.0-33.3); Mean Corpuscular Volume 91.9 fL (83.0-100.0); Mean Platelet Volume 11.9 fL (9.4-12.4); Monocytes # 0.9 K/mcL (0.0-1.3); Monocytes % 6.9 %; Neutrophils # 10.6 K/mcL (1.6-8.9); Platelet Count 125 K/mcL (140-400); Red Cell Distribution Width 12.4 % (11.5-14.5); Segmented Neutrophils % 83.9 %
[2018-01-17 05:42] LABS: Hemoglobin 11.2 g/dL (11.5-15.4)
[2018-01-17 05:55] LABS: BUN/Creatinine Ratio 13 (6-26); Blood Urea Nitrogen 10 mg/dL (6-20); Calcium 7.5 mg/dL (8.6-10.3); Carbon Dioxide 17 mEq/L (23-29); Chloride 114 mEq/L (98-107); Glucose 81 mg/dL (70-105); Osmolality,Calculated 286 (280-300); Potassium 3.9 mEq/L (3.5-5.1); Sodium 139 mEq/L (136-145); eGFR For African Americans > 60 (> 60); eGFR For Non-African Americans > 60 (> 60)
[2018-01-17] MEDS: Clindamycin 900 MG/50 ML 900 MG/50 ML IV.SOLN IVPB SCH ×2 (05:56→12:12)
--- NOTE | 2018-01-17 08:19 | Event Note ---
Date of Encounter: 01/17/18 Time of Encounter: 08:17 O: Short CBC 01/17/18 01/16/18 Range/Units 05:07 13:19 WBC 12.6 H 20.2 H (4.3-11.1) K/mcL Hgb 11.2 L D 14.3 (11.5-15.4) g/dL Hct 34.0 L 40.8 (35.3-44.9) % Plt Count 125 L 174 (140-400) K/mcL Neutrophils # 10.6 H 17.8 H (1.6-8.9) K/mcL BMP 01/17/18 01/16/18 Range/Units 05:07 13:19 Sodium 139 136 (136-145) mEq/L Potassium 3.9 3.3 L (3.5-5.1) mEq/L Chloride 114 H 103 (98-107) mEq/L Carbon Dioxide 17 L 22 L (23-29) mEq/L BUN 10 8 (6-20) mg/dL Creatinine 0.77 0.86 (0.60-1.20) mg/dL Glucose 81 105 (70-105) mg/dL Calcium 7.5 L 9.6 (8.6-10.3) mg/dL Liver Function 01/16/18 Range/Units 13:19 Total Bilirubin 1.6 H (0.3-1.0) mg/dL Direct Bilirubin 0.3 H (0.0-0.2) mg/dL AST 14 (13-39) Units/L ALT 14 (7-52) Units/L Alkaline Phosphatase 55 (34-104) Units/L Albumin 4.7 (3.5-5.7) g/dL Urine 01/16/18 Range/Units 13:23 Urine Color Yellow (Yellow) Urine Clarity Clear (Clear) Urine pH 6.5 (5.0-8.0) pH Units Ur Specific [place] 1.005 L (1.010-1.025) Urine Protein Negative (Neg-Trace) mg/dL Urine Glucose (UA) Normal (Normal) mg/dL Labs, especially WBC, are much improved this morning. A: Endometritis Bilateral hydrosalpinx P: Continue antibiotic course during hospital stay. Follow-up with Dr. De Guzman on discharge OB signing off on consult.
--- NOTE | 2018-01-17 08:36 | General Surgery Progress Note ---
<Mark Paulson - Last Filed: 01/17/18 10:01> Date of Encounter: 01/17/18 Time of Encounter: 06:40 - Assessment and Plan (1) Pelvic pain Status: Acute CT of the abdomen/pelvis reveals hydrosalpinx with possible left-sided superimposed infection/pyosalpinx and PID. In addition, CT is also suggestive of endometritis most likely secondary to PID. Patient was put on clindamycin and gentimicn in the ED. Her WBC has dropped significantly from 20.2 to 12.6. Her pulse is normal at 81. She has been afebrile overnight. Patient does not meet sepsis criteria anymore. Patient still has diffuse abdominal pain on exam, worst in the adnexal region, however her pain has improved since yesterday. Was able to talk to MITCHEL Cruz from [employer] who recommended that patient can continue IV clindamycin and gentamycin for now and can continue a 10 day course of doxycycline upon discharge. Surgery will sign-off on this patient. - Continue IV clindamycin and gentamicin. - Serial abdominal exams. - G/C labs negative. - NPO - IV fluids. - Pain control with toradol IV and oxycodone SL. - Control nausea with zofran. Abdomen/Pelvis CT 01/16/18 13:19 IMPRESSION: 1. Dilated tortuous curvilinear structures in the bilateral adnexal regions significantly more pronounced on the left where there is associated wall/rim enhancement and adjacent inflammatory stranding. Findings most consistent with hydrosalpinx with possible left-sided superimposed infection/pyosalpinx and PID. Inflammatory changes extend to involve the adjacent left ovary. Recommend further evaluation with pelvic ultrasound. 2. Appendix is relatively fluid-filled and mildly dilated along its mid to distal aspect where there is slight wall thickening/enhancement but no significant adjacent inflammatory stranding. Findings may represent early acute appendicitis in appropriate clinical setting. D/ / Sean Jacobs MD / Sean Jacobs MD Interpreting Provider: Sean Jacobs MD Abdomen/Pelvis/Transvag US 01/16/18 15:21 IMPRESSION: Bilateral tubular fluid-filled structures suggesting bilateral hydrosalpinx, larger on the left side. Small amount of free fluid adjacent uterus. No sonographic evidence for ovarian torsion. Recommend follow-up study in 6-8 weeks and clinical correlation. D/ / Nakul Schmidt MD / Nakul Schmidt MD Interpreting Provider: Nakul Schmidt MD (2) Hypokalemia Status: Resolved Potassium at 3.9. (3) DVT prophylaxis Status: Acute -SCDs. Subjective Narrative: Patient says that her abdominal pain has improved from yesterday. She currently denies any nausea or vomiting. She denies having a BM yet but admits to passing gas. She denies any fever, chills, chest pain, or shortness of breath. Objective VITAL SIGNS: Reviewed. See [facility] GENERAL: no apparent distress. HEENT: [Normocephalic, PER, EOMi, oropharynx pink/moist, no JVD noted.] CV: b/l rad pulses 2+, RRR, no murmurs or gallops, no JVD RESPIRATORY: CTAB without wheezes, rales, or rhonchi ABD: soft, moderate diffuse abdominal and adnexal pain b/l (R worse than L), no rebound/guarding/rigidity, no peritoneal signs. Negative McBurney's point. EXTREMITY: grossly normal motor function, no pedal edema, peripheral pulses 2+ b /l NEUROLOGIC EXAM: AOx3, obeys commands, no speech deficits. PSYCHIATRIC: normal mood and affect SKIN: no gross lesions, rashes, or skin changes Vital Signs - Last 8 Hours Temp Pulse Resp BP Pulse Ox 01/17/18 05:20 98.8 F 81 14 89/59 97 01/17/18 03:28 98.4 F 82 14 80/50 97 Intake and Output 01/16/18 01/17/18 01/17/18 23:59 07:59 15:59 Intake Total 250 / 250 150 / 150 Balance 250 / 250 150 / 150 Intake: IV Fluids 250 / 250 150 / 150 Cleocin Premix 900 MG/50 ML 900 50 / 50 50 / 50 mg In 50 ml @ 50 mls/hr IVPB Q8H [facility] Rx#:[id number] Potassium Chloride 10 mEq/100mL 200 / 200 100 / 100 10 meq In 100 ml @ 100 mls/hr IVPB Q1H [facility] Rx#:[id number] Oral 0 / 0 0 / 0 Other: Meal NPO NPO Percent of Meal Consumed 0% 0% # Voids 1 1 # Bowel Movements 0 Weight 61.8 kg Blood Glucose* 81 Patient Weight 01/17/18 23:59 Weight 61.8 kg - Labs 01/17/18 05:07 01/17/18 05:07 Diabetes panel 01/17/18 Range/Units 05:07 Sodium 139 (136-145) mEq/L Potassium 3.9 (3.5-5.1) mEq/L Chloride 114 H (98-107) mEq/L Carbon Dioxide 17 L (23-29) mEq/L BUN 10 (6-20) mg/dL Creatinine 0.77 (0.60-1.20) mg/dL Glucose 81 (70-105) mg/dL Calcium 7.5 L (8.6-10.3) mg/dL Calcium panel 01/17/18 Range/Units 05:07 Calcium 7.5 L (8.6-10.3) mg/dL Pituitary panel 01/17/18 Range/Units 05:07 Sodium 139 (136-145) mEq/L Potassium 3.9 (3.5-5.1) mEq/L Chloride 114 H (98-107) mEq/L Carbon Dioxide 17 L (23-29) mEq/L BUN 10 (6-20) mg/dL Creatinine 0.77 (0.60-1.20) mg/dL Glucose 81 (70-105) mg/dL Calcium 7.5 L (8.6-10.3) mg/dL Adrenal panel 01/17/18 Range/Units 05:07 Sodium 139 (136-145) mEq/L Potassium 3.9 (3.5-5.1) mEq/L Chloride 114 H (98-107) mEq/L Carbon Dioxide 17 L (23-29) mEq/L BUN 10 (6-20) mg/dL Creatinine 0.77 (0.60-1.20) mg/dL Glucose 81 (70-105) mg/dL Calcium 7.5 L (8.6-10.3) mg/dL Consult Discharge Plan - Plan Additional Instructions: Follow-up with your [employer] doctor in 1 week Referrals: Antonio Snyder MD [Non-Partnered Physician] - 01/19/18 10:00 am () Daniel Coronado MD [Primary Care Provider] - (In 1-2 weeks Office will call patient with date and time of appt. Thank you) <Mikey Jimenez - Last Filed: 01/19/18 19:56> Date of Encounter: 01/17/18 Objective - Labs 01/17/18 05:07 01/17/18 05:07 - Attending Attestation I examined this patient and my medical decision-making was reviewed with the Resident Physician. I agree with the documented findings, disposition and treatment plan as described except to the extent set forth below. The patient is seen and evaluated on morning rounds with resident. Her abdominal examination is improved and her white blood cell count is dropped from 20,000 down to 12,000. She does not appear to have appendicitis. This appears to be primarily a uterine and fallopian tube infection. General surgery will sign off Mikey Jimenez MD FACS
--- NOTE | 2018-01-17 10:57 | Discharge Summary ---
- NOTES TO OUTPATIENT PROVIDER Notes to Outpatient Provider: Patient admitted here with pelvic pain related to endometritis and hydrosalpinx. Evaluated by PUBLIC WORKS INSPECTOR. Treated with IV antibiotics. Doing much better today. Will be discharged on oral antibiotics and will follow-up outpatient with PUBLIC WORKS INSPECTOR. CT of abdomen and pelvis also showed fluid-filled appendix possibly concerning for early appendicitis. Patient was evaluated by surgery. Appendicitis was ruled out per their exam. Has been cleared for discharge from their standpoint. Date of Encounter: 01/17/18 Time of Encounter: 10:55 - Discharge Diagnosis (1) Sepsis Priority: Primary Status: Acute Qualifiers: Sepsis type: sepsis due to unspecified organism Qualified Code(s): A41.9 - Sepsis, unspecified organism (2) Pelvic pain Priority: Secondary Status: Acute (3) Hypokalemia Priority: Secondary Status: Resolved (4) Hydrosalpinx Priority: Secondary Status: Acute (5) Disease of appendix, unspecified Priority: Secondary Status: Acute (6) DVT prophylaxis Priority: Secondary Status: Acute (7) Endometritis Priority: Secondary Status: Acute (8) PID (acute pelvic inflammatory disease) Priority: Secondary Status: Acute Hospital course: Ms. Damon is a 42 year old female Patient hospitalized here with pelvic pain related to endometritis and hydrosalpinx. Evaluated by PUBLIC WORKS INSPECTOR. Treated with IV antibiotics. Is not doing much better. Pain is better controlled. She is stable to be discharged on oral antibiotics and will follow-up outpatient with PUBLIC WORKS INSPECTOR. Initial CT of abdomen and pelvis also showed fluid-filled appendix possibly concerning for early appendicitis. Patient was evaluated by surgery. Appendicitis was ruled out per their exam. She has been cleared for discharge from their standpoint. Discharge discussed with: patient, nursing education consultant - Time Spent with Patient Total time spent providing and/or coordinating discharge services: Less than 30 minutes (25 min) - Discharge Medications Prescriptions: Doxycycline 100 mg PO BID #24 capsule Home Medications: Doxycycline 100 mg PO BID #24 capsule 01/17/18 [Rx] Allergies/Adverse Reactions: 3 Allergy/AdvReac Type Severity Reaction Status Date / Time Penicillins Allergy Rash Verified 01/16/18 12:17 Date of admission: 01/16/18 20:27 Primary care physician: Daniel Coronado MD Consults: 01/16/18 15:50 Consult to COMPACT ASSEMBLER [CONS] Stat Consulting Provider: PUBLIC WORKS INSPECTOR Dania Reason for Consult: possible hydrosalpinx, endometritis on CT Time Notified: 15:52 Call Completed: Yes Consult to Surgery [CONS] Stat Consulting Provider: Surgery Dania Surgical Reason for Consult: Possible appendicitis on CT Time Notified: 15:53 Call Completed: Yes Discharging clinician: Jumana Andrews Anticipated date of discharge: 01/17/18 - Constitutional Vitals: Temp Pulse Resp BP Pulse Ox 98.8 F 81 14 89/59 97 01/17/18 05:20 01/17/18 05:20 01/17/18 05:20 01/17/18 05:20 01/17/18 05:20 General appearance: Present: cooperative, mild distress, A&O X 3, answers questions appropriately - Respiratory Respiratory exam: Present: CTAB. Absent: accessory muscle use, rales, rhonchi, wheezes - Cardiovascular Cardiovascular exam: Present: RRR, +S1, +S2. Absent: diastolic murmur, gallop, rubs, systolic murmur - GI/Abdominal GI/Abdominal exam: Present: normal bowel sounds, soft, no peritoneal signs. Absent: distended, tenderness - Extremities Exam Extremities exam: Present: warm, radial pulses palpable and symmetrical. Absent : calf tenderness, cyanotic, pedal edema - Neurological Exam Neurological exam: Present: CN II-XII intact, oriented X3, no focal deficits. Absent: pronater drift, facial droop, speech deficit - Skin Skin exam: Present: dry, intact - Patient Status Disposition: Home, Self-Care Condition: Good Functional capacity at discharge: independent ambulation Overall status at discharge: patient is progressing back to baseline - Discharge Instructions Follow Up With: Antonio Snyder MD [Non-Partnered Physician] - 01/19/18 10:00 am () Daniel Coronado MD [Primary Care Provider] - (In 1-2 weeks Office will call patient with date and time of appt. Thank you) Forms: ED Satisfaction Letter, Work/School Release Additional Instructions: Follow-up with your PUBLIC WORKS INSPECTOR doctor in 1 week - Diet and Activity Activity: increase activity as tolerated Diet: low fat, low cholesterol, low salt diet
[2018-01-17 11:02] VITALS: BP 97/65
[2018-01-17] MEDS ORDERED: Aminoglycoside Consult 1 EACH MC ONE (14:24)
[2018-01-17] MEDS ORDERED: Gentamicin 260 MG in 0.9 % Sodium Chloride 100 ML IVPB SCH (17:00)
== END 2018-01-17 14:25 | disposition home or self-care (01) ==
LOC: EMEROO 12:09 → 3ANU 12:09 → SUATTDRO 20:27
PROVIDERS: ADMIT Internal Medicine; ATTEND Internal Medicine

== ENCOUNTER 2018-01-17 21:54 | Inpatient (IN) ==
[2018-01-17] MEDS ORDERED: Isovue-370 500 ML INFUS..BTL IV ONE (22:32)
[2018-01-17] MEDS ORDERED: *HR* FentaNYL (PF) 100 MCG/2 ML VIAL IVP ONE (22:33)
[2018-01-17] MEDS ORDERED: Ondansetron 4 MG/2 ML VIAL IVP ONE (22:33)
[2018-01-17 22:41] LABS: Bilirubin,Urine Negative (Negative); Blood,Urine Negative (Negative); Clarity,Urine Cloudy (Clear); Color,Urine Yellow (Yellow); Glucose,Urine (UA) Normal (Normal); Ketones,Urine Negative (Negative); Leukocyte Esterase,Urine Negative (Negative); Nitrite,Urine Negative (Negative); PH,Urine 6.5 pH Units (5.0-8.0); Protein,Urine Trace mg/dL (Neg-Trace); Specific Gravity,Urine 1.007 (1.010-1.025)
[2018-01-17 22:43] LABS: Hyaline Casts,Urine None Seen per lpf (None-Few); RBC,Urine 0-3 per hpf (0-3); Squamous Epithelial Cell,Urine Moderate per lpf (None-Few); WBC,Urine 0-3 per hpf (0-3)
[2018-01-17 22:55] LABS: Yeast,Urine Few per hpf (None Seen)
--- NOTE | 2018-01-17 22:55 | Emergency Department Note ---
Disposition Clinical Impression: Abdominal pain Qualifiers: Abdominal location: generalized Qualified Code(s): R10.84 - Generalized abdominal pain Disposition: Still a Patient Condition: Fair Referrals: Daniel Coronado MD [Primary Care Provider] - Forms: ED Satisfaction Letter, Work/School Release Abdominal Pain HPI - General Chief Complaint: ED Abdominal Pain Stated Complaint: abdominal pain/fever Time Seen by Provider: 01/17/18 22:01 Source: patient, family Mode of arrival: ambulatory Limitations: no limitations - History of Present Illness HPI Narrative: Patient is a 44 year old female who presented to [facility] ED on 01/17/18 with the chief complaint of abdominal pain x 3 days. Patient presented yesterday with similar complaints. Labs demonstrated elevated white count at 20.2. CT scan demonstrated Initial CT of abdomen and pelvis also showed fluid-filled appendix possibly concerning for early appendicitis. Patient was evaluated by surgery. From surgerys standpoint, patient did not appear to have appendicitis. Serology was negative for jeremiah, chlamydia, gardnerella, gonorrhea, and trichomonas. Patient was discharged on doxycycline x 12 days and was told to take ibuprofen for pain control. She reports that her symptoms have worsened. Her abdominal pain has moved further up since yesterday. Pain primarily located in the suprapubic region. Admits to subjective fever, nausea, abdominal pain. Denies vaginal discharge, vomiting, dysuria or chest pain. Pt Subjective Complaint: abdominal pain Onset (ago): day(s) Consistency: constant Location: LLQ, RLQ, suprapubic Pain Severity: moderate Pain Scale: 6 Quality: fullness, sharp Radiation: none Migration to: no migration Improves with: nothing Worsens with: movement Associated symptoms: Reports: nausea, fever, constipation. Denies: vomiting, dysuria, anorexia, syncope - Related Data Previous Rx's Medication Instructions Recorded Doxycycline 100 mg PO BID #24 capsule 01/17/18 Allergies Allergy/AdvReac Type Severity Reaction Status Date / Time Penicillins Allergy Rash Verified 01/17/18 21:55 All systems ED: reviewed and negative except as stated. Review of Systems: As Per HPI Constitutional: Reports: as per HPI, fever, chills. Denies: weakness, weight change Eyes: Reports: as per HPI Cardiovascular: Reports: as per HPI. Denies: chest pain, palpitations, dyspnea on exertion, edema, syncope Respiratory: Reports: as per HPI. Denies: cough, dyspnea, wheezes, hemoptysis Gastrointestinal: Reports: as per HPI, abdominal pain, nausea, constipation. Denies: vomiting, diarrhea, hematemesis Genitourinary: Reports: as per HPI. Denies: urgency, dysuria, frequency Musculoskeletal: Reports: as per HPI. Denies: back pain Integumentary: Reports: as per HPI. Denies: rash, abrasion Neurological: Reports: as per HPI. Denies: headache, weakness Psychiatric: Reports: as per HPI. Denies: anxiety, depression Abdominal Pain PMH - Past Medical History Medical history: Reports: no medical history, non-contributory Female Surgical History: Reports: Psychiatric history: Reports: no psych history - Social History Smoking status: Never smoker Alcohol use: Reports: none Drug use: Reports: none Physical Exam - General Limitations: language barrier General appearance: alert, in no apparent distress - Head Head exam: atraumatic, normocephalic - Eye Eye exam: Present: normal appearance - ENT ENT exam: normal exam - Neck Neck exam: Present: normal inspection - Chest Chest inspection: Present: normal inspection, symmetric chest wall rise - Respiratory Respiratory exam: Present: normal lung sounds bilaterally. Absent: respiratory distress, wheezes, accessory muscle use, prolonged expiratory phase - Cardiovascular Cardiovascular exam: Present: regular rate, normal rhythm, normal heart sounds, +S1, +S2. Absent: bradycardia, tachycardia, systolic murmur, diastolic murmur - Abdominal Exam Abdominal exam: Present: soft, tenderness, guarding. Absent: distention Abdominal tenderness: Present: RLQ, LLQ, suprapubic - Back Exam Back exam: Present: normal inspection - Neurological Exam Neurological exam: Present: alert, oriented X3 - Psychiatric Psychiatric exam: Present: normal affect, normal mood. Absent: flat affect, manic - Skin Skin exam: Present: warm, dry, intact Course Course Narrative: Patient presents with worsening abdominal pain. Previous CT demonstrated findings concerning for hydrosalpinx with possible left-sided superimposed infection/pyosalpinx and PID. Will obtain repeat CT with IV and oral contrast ; will rule out appendicitis. IV fentanyl and Zofran to control pain and nausea. Vital Signs Temperature 98.9 F 01/17/18 21:55 Pulse Rate 98 01/17/18 21:55 Respiratory Rate 18 01/17/18 21:55 Blood Pressure 92/52 01/17/18 21:55 O2 Sat by Pulse Oximetry 95 01/17/18 21:55 Temperature 98.9 F 01/17/18 21:55 Pulse Rate 76 01/18/18 00:08 Respiratory Rate 16 01/18/18 00:08 Blood Pressure 85/55 01/18/18 00:08 O2 Sat by Pulse Oximetry 99 01/18/18 00:08 Oxygen Delivery Oxygen Delivery Room Air Abdominal Pain - Medical Records Medical records reviewed: Yes I reviewed the patient's medical records. - Lab Data Result diagrams: 01/17/18 22:37 01/17/18 22:37 Lab Results 01/17/18 01/17/18 01/17/18 Range/Units 22:11 22:11 22:37 WBC (4.3-11.1) K/mcL RBC (3.82-4.97) M/mcL Hgb (11.5-15.4) g/dL Hct (35.3-44.9) % MCV (83.0-100.0) fL MCH (28.0-33.3) pg MCHC (31.6-35.5) g/dL RDW (11.5-14.5) % Plt Count (140-400) K/mcL MPV (9.4-12.4) fL Immature Gran % (0-4) % Seg Neutrophils % % Lymphocytes % % Monocytes % % Eosinophils % % Basophils % % Neutrophils # (1.6-8.9) K/mcL Lymphocytes # (0.6-4.6) K/mcL Monocytes # (0.0-1.3) K/mcL Eosinophils # (0.0-0.6) K/mcL Basophils # (0.0-0.2) K/mcL Sodium (136-145) mEq/L Potassium (3.5-5.1) mEq/L Chloride (98-107) mEq/L Carbon Dioxide (23-29) mEq/L BUN (6-20) mg/dL Creatinine (0.60-1.20) mg/dL Est GFR ( Amer) (> 60) Est GFR (Non-Af Amer) (> 60) BUN/Creatinine Ratio (6-26) Glucose (70-105) mg/dL Calculated Osmolality (280-300) Lactic Acid 0.8 (0.5-2.2) mmol/L Calcium (8.6-10.3) mg/dL Urine Color Yellow (Yellow) Urine Clarity Cloudy A (Clear) Urine pH 6.5 (5.0-8.0) pH Units Ur Specific [place] 1.007 L (1.010-1.025) Urine Protein Trace (Neg-Trace) mg/dL Urine Glucose (UA) Normal (Normal) mg/dL Urine Ketones Negative (Negative) mg/dL Urine Blood Negative (Negative) Urine Nitrite Negative (Negative) Urine Bilirubin Negative (Negative) Urine Urobilinogen 4.0 H (Normal) mg/dL Ur Leukocyte Esterase Negative (Negative) Urine Microscopic RBC 0-3 (0-3) per hpf Urine Microscopic WBC 0-3 (0-3) per hpf Ur Squamous Epith Cells Moderate H (None-Few) per lpf Urine Bacteria Few (None-Few) per hpf Hyaline Casts None Seen (None-Few) per lpf Urine Yeast Few H (None Seen) per hpf Ur Culture Indicated? NO (NO) Urine Test Negative (Negative) 01/17/18 01/17/18 Range/Units 22:37 22:37 WBC 11.7 H (4.3-11.1) K/mcL RBC 3.67 L (3.82-4.97) M/mcL Hgb 11.5 (11.5-15.4) g/dL Hct 33.2 L (35.3-44.9) % MCV 90.5 (83.0-100.0) fL MCH 31.3 (28.0-33.3) pg MCHC 34.6 (31.6-35.5) g/dL RDW 12.5 (11.5-14.5) % Plt Count 138 L (140-400) K/mcL MPV 11.8 (9.4-12.4) fL Immature Gran % 0.8 (0-4) % Seg Neutrophils % 83.7 % Lymphocytes % 6.4 % Monocytes % 8.7 % Eosinophils % 0.2 % Basophils % 0.2 % Neutrophils # 9.8 H (1.6-8.9) K/mcL Lymphocytes # 0.8 (0.6-4.6) K/mcL Monocytes # 1.0 (0.0-1.3) K/mcL Eosinophils # 0.0 (0.0-0.6) K/mcL Basophils # 0.0 (0.0-0.2) K/mcL Sodium 138 (136-145) mEq/L Potassium 3.6 (3.5-5.1) mEq/L Chloride 111 H (98-107) mEq/L Carbon Dioxide 18 L (23-29) mEq/L BUN 12 (6-20) mg/dL Creatinine 0.85 (0.60-1.20) mg/dL Est GFR ( Amer) > 60 (> 60) Est GFR (Non-Af Amer) > 60 (> 60) BUN/Creatinine Ratio 14 (6-26) Glucose 125 H (70-105) mg/dL Calculated Osmolality 287 (280-300) Lactic Acid (0.5-2.2) mmol/L Calcium 8.1 L (8.6-10.3) mg/dL Urine Color (Yellow) Urine Clarity (Clear) Urine pH (5.0-8.0) pH Units Ur Specific [place] (1.010-1.025) Urine Protein (Neg-Trace) mg/dL Urine Glucose (UA) (Normal) mg/dL Urine Ketones (Negative) mg/dL Urine Blood (Negative) Urine Nitrite (Negative) Urine Bilirubin (Negative) Urine Urobilinogen (Normal) mg/dL Ur Leukocyte Esterase (Negative) Urine Microscopic RBC (0-3) per hpf Urine Microscopic WBC (0-3) per hpf Ur Squamous Epith Cells (None-Few) per lpf Urine Bacteria (None-Few) per hpf Hyaline Casts (None-Few) per lpf Urine Yeast (None Seen) per hpf Ur Culture Indicated? (NO) Urine Test (Negative)
[2018-01-17 22:56] LABS: Bacteria,Urine Few per hpf (None-Few)
[2018-01-17 23:07] LABS: Basophils % 0.2 %; Eosinophils % 0.2 %; Hematocrit 33.2 % (35.3-44.9); Hemoglobin 11.5 g/dL (11.5-15.4); Immature Granulocytes % 0.8 % (0-4); Lymphocytes # 0.8 K/mcL (0.6-4.6); Lymphocytes % 6.4 %; Mean Corpuscular HGB Conc 34.6 g/dL (31.6-35.5); Mean Corpuscular Hemoglobin 31.3 pg (28.0-33.3); Mean Corpuscular Volume 90.5 fL (83.0-100.0); Mean Platelet Volume 11.8 fL (9.4-12.4); Monocytes % 8.7 %; Neutrophils # 9.8 K/mcL (1.6-8.9); Platelet Count 138 K/mcL (140-400); Red Blood Count 3.67 M/mcL (3.82-4.97); Red Cell Distribution Width 12.5 % (11.5-14.5); Segmented Neutrophils % 83.7 %
--- NOTE | 2018-01-17 23:08 | Emergency Department Note ---
Disposition Clinical Impression: Abdominal pain Disposition: Still a Patient Condition: Fair Referrals: Daniel Coronado MD [Primary Care Provider] - Forms: ED Satisfaction Letter, Work/School Release General Adult HPI - General Chief complaint: ED Abdominal Pain Stated complaint: abdominal pain/fever Time Seen by Provider: 01/17/18 22:01 Source: patient, family Mode of arrival: ambulatory Limitations: language barrier Nursing Notes Reviewed: Yes Vital Signs Reviewed: Yes - History of Present Illness Pain Scale: 6 - Related Data Previous Rx's Medication Instructions Recorded Doxycycline 100 mg PO BID #24 capsule 01/17/18 Allergies Allergy/AdvReac Type Severity Reaction Status Date / Time Penicillins Allergy Rash Verified 01/17/18 21:55 Constitutional: Reports: as per HPI, fever, chills. Denies: weakness, weight change Eyes: Reports: as per HPI Cardiovascular: Reports: as per HPI. Denies: chest pain, palpitations, dyspnea on exertion, edema, syncope Respiratory: Reports: as per HPI. Denies: cough, dyspnea, wheezes, hemoptysis Gastrointestinal: Reports: as per HPI, abdominal pain, nausea, constipation. Denies: vomiting, diarrhea, hematemesis Genitourinary: Reports: as per HPI. Denies: urgency, dysuria, frequency Musculoskeletal: Reports: as per HPI. Denies: back pain Integumentary: Reports: as per HPI. Denies: rash, abrasion Neurological: Reports: as per HPI. Denies: headache, weakness Psychiatric: Reports: as per HPI. Denies: anxiety, depression Past Medical History - Past Medical History Medical history: Reports: no medical history, non-contributory Psychiatric history: Reports: no psych history - Social History Smoking Status: Never smoker Smokeless Tobacco Status: No Alcohol use: Reports: none Drug use: Reports: none Physical Exam - General Limitations: language barrier General appearance: alert, in no apparent distress Course Vital Signs Temperature 98.9 F 01/17/18 21:55 Pulse Rate 98 01/17/18 21:55 Respiratory Rate 18 01/17/18 21:55 Blood Pressure 92/52 01/17/18 21:55 O2 Sat by Pulse Oximetry 95 01/17/18 21:55 Temperature 98.9 F 01/17/18 21:55 Pulse Rate 76 01/18/18 00:54 Respiratory Rate 16 01/18/18 00:54 Blood Pressure 97/62 01/18/18 00:54 O2 Sat by Pulse Oximetry 98 01/18/18 00:54 Oxygen Delivery Oxygen Delivery Room Air Medical Decision Making - MDM Narrative Medical decision making narrative: 0000 hours: Patient's labs are back CBCs improved. Waiting on CAT scan. She is feeling somewhat better. We will disposition after her CAT scan. 0123 hrs.: Still waiting on radiologist read CAT scan. Patient is much more comfortable. I am in a sign her out to the evening ER physician Dr. Staples for further management and disposition. Patient is updated on status. - Lab Data Result diagrams: 01/17/18 22:37 01/17/18 22:37 Lab Results 01/17/18 01/17/18 01/17/18 Range/Units 22:11 22:11 22:37 WBC (4.3-11.1) K/mcL RBC (3.82-4.97) M/mcL Hgb (11.5-15.4) g/dL Hct (35.3-44.9) % MCV (83.0-100.0) fL MCH (28.0-33.3) pg MCHC (31.6-35.5) g/dL RDW (11.5-14.5) % Plt Count (140-400) K/mcL MPV (9.4-12.4) fL Immature Gran % (0-4) % Seg Neutrophils % % Lymphocytes % % Monocytes % % Eosinophils % % Basophils % % Neutrophils # (1.6-8.9) K/mcL Lymphocytes # (0.6-4.6) K/mcL Monocytes # (0.0-1.3) K/mcL Eosinophils # (0.0-0.6) K/mcL Basophils # (0.0-0.2) K/mcL Sodium (136-145) mEq/L Potassium (3.5-5.1) mEq/L Chloride (98-107) mEq/L Carbon Dioxide (23-29) mEq/L BUN (6-20) mg/dL Creatinine (0.60-1.20) mg/dL Est GFR ( Amer) (> 60) Est GFR (Non-Af Amer) (> 60) BUN/Creatinine Ratio (6-26) Glucose (70-105) mg/dL Calculated Osmolality (280-300) Lactic Acid 0.8 (0.5-2.2) mmol/L Calcium (8.6-10.3) mg/dL Urine Color Yellow (Yellow) Urine Clarity Cloudy A (Clear) Urine pH 6.5 (5.0-8.0) pH Units Ur Specific [place] 1.007 L (1.010-1.025) Urine Protein Trace (Neg-Trace) mg/dL Urine Glucose (UA) Normal (Normal) mg/dL Urine Ketones Negative (Negative) mg/dL Urine Blood Negative (Negative) Urine Nitrite Negative (Negative) Urine Bilirubin Negative (Negative) Urine Urobilinogen 4.0 H (Normal) mg/dL Ur Leukocyte Esterase Negative (Negative) Urine Microscopic RBC 0-3 (0-3) per hpf Urine Microscopic WBC 0-3 (0-3) per hpf Ur Squamous Epith Cells Moderate H (None-Few) per lpf Urine Bacteria Few (None-Few) per hpf Hyaline Casts None Seen (None-Few) per lpf Urine Yeast Few H (None Seen) per hpf Ur Culture Indicated? NO (NO) Urine Test Negative (Negative) 01/17/18 01/17/18 Range/Units 22:37 22:37 WBC 11.7 H (4.3-11.1) K/mcL RBC 3.67 L (3.82-4.97) M/mcL Hgb 11.5 (11.5-15.4) g/dL Hct 33.2 L (35.3-44.9) % MCV 90.5 (83.0-100.0) fL MCH 31.3 (28.0-33.3) pg MCHC 34.6 (31.6-35.5) g/dL RDW 12.5 (11.5-14.5) % Plt Count 138 L (140-400) K/mcL MPV 11.8 (9.4-12.4) fL Immature Gran % 0.8 (0-4) % Seg Neutrophils % 83.7 % Lymphocytes % 6.4 % Monocytes % 8.7 % Eosinophils % 0.2 % Basophils % 0.2 % Neutrophils # 9.8 H (1.6-8.9) K/mcL Lymphocytes # 0.8 (0.6-4.6) K/mcL Monocytes # 1.0 (0.0-1.3) K/mcL Eosinophils # 0.0 (0.0-0.6) K/mcL Basophils # 0.0 (0.0-0.2) K/mcL Sodium 138 (136-145) mEq/L Potassium 3.6 (3.5-5.1) mEq/L Chloride 111 H (98-107) mEq/L Carbon Dioxide 18 L (23-29) mEq/L BUN 12 (6-20) mg/dL Creatinine 0.85 (0.60-1.20) mg/dL Est GFR ( Amer) > 60 (> 60) Est GFR (Non-Af Amer) > 60 (> 60) BUN/Creatinine Ratio 14 (6-26) Glucose 125 H (70-105) mg/dL Calculated Osmolality 287 (280-300) Lactic Acid (0.5-2.2) mmol/L Calcium 8.1 L (8.6-10.3) mg/dL Urine Color (Yellow) Urine Clarity (Clear) Urine pH (5.0-8.0) pH Units Ur Specific [place] (1.010-1.025) Urine Protein (Neg-Trace) mg/dL Urine Glucose (UA) (Normal) mg/dL Urine Ketones (Negative) mg/dL Urine Blood (Negative) Urine Nitrite (Negative) Urine Bilirubin (Negative) Urine Urobilinogen (Normal) mg/dL Ur Leukocyte Esterase (Negative) Urine Microscopic RBC (0-3) per hpf Urine Microscopic WBC (0-3) per hpf Ur Squamous Epith Cells (None-Few) per lpf Urine Bacteria (None-Few) per hpf Hyaline Casts (None-Few) per lpf Urine Yeast (None Seen) per hpf Ur Culture Indicated? (NO) Urine Test (Negative) Attestation Statement - Attestation Attestation: This documentation is done with the assistance of Dragon dictation. Despite efforts made to ensure accuracy, there may be inaccuracies in fire equipment inspector helper or spelling and typographical errors. I examined this patient and my medical decision-making was reviewed with the Resident Physician. I agree with the documented findings, disposition and treatment plan as described except to the extent set forth below. Patient seen and evaluated by Dr. Faye and myself, I agree with his evaluation management plan, supervised the care the patient's stay. Patient was just discharged from the hospital this morning. They thought she had PID. She is on antibiotics for that. However she has had no vaginal discharge or cultures are negative. It is CT which showed some inflammation. Also possible early appendicitis. She does have tenderness on her abdomen this seems to be more diffuse. She is nauseous but no vomiting no diarrhea. She appears not feel well but is nontoxic. I think this could be appendicitis were going to rescan her check labs try to make her more comfortable and then reassess. She is in agreement with this plan.
[2018-01-17] MEDS ORDERED: 0.9 % Sodium Chloride 1,000 ML IVC ONE (23:10)
[2018-01-17 23:15] LABS: BUN/Creatinine Ratio 14 (6-26); Blood Urea Nitrogen 12 mg/dL (6-20); Calcium 8.1 mg/dL (8.6-10.3); Carbon Dioxide 18 mEq/L (23-29); Chloride 111 mEq/L (98-107); Glucose 125 mg/dL (70-105); Osmolality,Calculated 287 (280-300); Potassium 3.6 mEq/L (3.5-5.1); Sodium 138 mEq/L (136-145); eGFR For African Americans > 60 (> 60); eGFR For Non-African Americans > 60 (> 60)
[2018-01-18] MEDS ORDERED: Doxycycline 100 MG in 0.9 % Sodium Chloride Mini Bag 100 ML IVPB ONE (01:48)
[2018-01-18] MEDS ORDERED: cefOXitin 2,000 MG in 0.9 % Sodium Chloride Mini Bag 100 ML IVP ONE (01:48)
[2018-01-18] MEDS ORDERED: *HR* FentaNYL (PF) 100 MCG/2 ML VIAL IVP ONE (02:01)
[2018-01-18] MEDS ORDERED: *HR* FentaNYL (PF) 100 MCG/2 ML VIAL ONE (02:04)
--- NOTE | 2018-01-18 02:57 | Emergency Department Note ---
START Narrative - START START: I received this patient in signout. Pelvic exam was performed yesterday. Non- peritoneal abdominal. There is findings of hydrosalpinx as well as possible PID. GC cultures are negative. I will start doxycycline and cefoxitin based on current antimicrobial recommendations. Patient will be admitted for failed outpatient antibiotic therapy. Discussed case with on-call ui software developer who is aware patient will be admitted to hospital service.
[2018-01-18] MEDS ORDERED: Acetaminophen 325 MG TABLET PO PRN (04:43)
[2018-01-18] MEDS ORDERED: Naloxone 0.4 MG/ML INJ IVP PRN (04:43)
[2018-01-18] MEDS ORDERED: 0.9 % Sodium Chloride 1,000 ML IVC SCH (04:45)
--- NOTE | 2018-01-18 04:54 | Internal Med History&Physical ---
Date of Encounter: 01/18/18 Time of Encounter: 04:00 Internal Medicine - H&P: HPI Chief complaint: Abdominal pain Admitted From: Home Plans for Post Hospital Care: Home History of present illness: Ms. Damon is a 42 year old female present to ER for abdominal pain. Patient is generally in good health, with no significant past medical history. Patient was just discharged the from hospital for PID with by mouth antibiotic. Patient said several hours after she get home, she started to have abdominal pain again, the pain is mainly on the lower abdominal area but do involve the whole belly. Patient has subjective fever. No nausea, no vomiting, no urination symptoms. Patient described the pain is similar with days ago when she has PID. In the emergency room, abdominal CT re-demonstrated pelvis inflammation. Patient was treated with cefoxitin and doxycycline IV. After treatment, patient feels better but still complaint of a lot of pain. Patient was admitted for further management. STRUCTURES ENGINEER consult was called by ER. Past Med Surg Social Fam HX - Past Medical History Medical history: no medical history, non-contributory Psychiatric history: no psych history - Social History Smoking Status: Never smoker Smokeless Tobacco Status: No Alcohol use: none Drug use: none - Family History Father Adopted: [place]: Daniel Uriostegui Age: 63 Family Member Ethnicity: Non- Living Status: Still Living Hx Family Cardiac Disorders: Yes (HTN) Hx Family Respiratory Disorders: No Hx Family Cancer: No Hx Family GI Disorders: No Hx Family Genitourinary Disorders: No Hx Family Endocrine Disorder: Yes (Diabetes) Hx Family Musculoskeletal Disorders: No Hx Family Neuromuscular Disorders: No Hx Family Neurologic Disorders: No Hx Family HEENT Disorders: No Hx Family Autoimmune Disorders: No Hx Family Reproductive Disorders: No Hx Family Psychosocial Disorders: No Hx Family Medical Disorders: No Mother Adopted: [place]: Lulu Uriostegui Age: 61 Family Member Ethnicity: Non- Living Status: Still Living Hx Family Respiratory Disorders: Yes (Asthma) Hx Family Cancer: No Hx Family GI Disorders: No Hx Family Genitourinary Disorders: No Hx Family Endocrine Disorder: No Hx Family Musculoskeletal Disorders: No Hx Family Neuromuscular Disorders: No Hx Family Autoimmune Disorders: Yes (Rheumatoid) Hx Family Reproductive Disorders: No Hx Family Psychosocial Disorders: No Hx Family Medical Disorders: No (back surgery) Internal Medicine - H&P: Meds Doxycycline 100 mg PO BID #24 capsule 01/17/18 [Rx] 3 Allergy/AdvReac Type Severity Reaction Status Date / Time Penicillins Allergy Rash Verified 01/17/18 21:55 All Systems PM: A 10-system review of systems was performed and is negative for pertinent findings except as documented above in the HPI. - Constitutional Vitals: Temp Pulse Resp BP Pulse Ox 98.0 F 86 14 91/59 99 01/18/18 03:47 01/18/18 03:47 01/18/18 03:47 01/18/18 03:47 01/18/18 03:47 General appearance: Present: mild distress, A&O X 3, answers questions appropriately - Head Head exam: Present: atraumatic, normocephalic - Eye Eye exam: Present: PERRL, conjuntiva pink, sclera anicteric Pupils: Present: PERRL - Neck Neck exam general surgery: Present: supple, trachea midline. Absent: lymphadenopathy - Respiratory Respiratory exam: Present: CTAB. Absent: accessory muscle use, rales, rhonchi, wheezes - Cardiovascular Cardiovascular exam: Present: RRR, +S1, +S2. Absent: diastolic murmur, gallop, rubs, systolic murmur - GI/Abdominal GI/Abdominal exam: Present: normal bowel sounds, soft, tenderness (Lower abdominal tenderness, with rebound and guarding), no peritoneal signs. Absent: distended - Extremities Exam Extremities exam: Present: warm, radial pulses palpable and symmetrical. Absent : calf tenderness, cyanotic, pedal edema - Neurological Exam Neurological exam: Present: CN II-XII intact, oriented X3, no focal deficits. Absent: pronater drift, facial droop, speech deficit - Skin Skin exam: Present: dry, intact Internal Med - H&P Results - Labs CBC & Chem 7: 01/17/18 22:37 01/17/18 22:37 - Assessment and plan (1) Abdominal pain Current Visit: Yes Status: Acute Assessment and plan: Most likely due to PID. Repeat abdominal CT shows less likely appendicitis. Continue antibiotic and pain medications. STRUCTURES ENGINEER consult. Qualifiers: Abdominal location: lower abdomen, unspecified Qualified Code(s): R10.30 - Lower abdominal pain, unspecified (2) DVT prophylaxis Current Visit: No Status: Acute Assessment and plan: Heparin subcutaneously (3) PID (acute pelvic inflammatory disease) Current Visit: No Status: Acute Assessment and plan: Management as described above. - Time Spent With Patient Total time spent is greater than 50% in coordination of care (as documented) at patient's floor/unit and/or counseling patient: 40 minutes Greater than 35 minutes
[2018-01-18] MEDS ORDERED: OXYCODONE Oral CONC 10 MG/0.5 ML ORAL.SYG SL PRN ×2 (05:00)
[2018-01-18] MEDS: *HR* Heparin 5,000 UNIT/ML VIAL SQ SCH ×2 (05:56→17:54)
[2018-01-18] MEDS: cefOXitin 2,000 MG in Water for inj. (sterile) 20 ML 20 ML IVP SCH ×2 (08:43→17:53)
[2018-01-18] MEDS ORDERED: Doxycycline 100 MG in 0.9 % Sodium Chloride Mini Bag 100 ML IVPB SCH (13:00)
--- NOTE | 2018-01-18 14:23 | Event Note ---
Date of Encounter: 01/18/18 Time of Encounter: 07:30 Discussed case with [employer] and requested that they take over her care because this is a gynecologic problem requiring readmission and patient does not have any underlying medical issues. They accepted and will evaluate patient later today. In the meantime continue current management with IV antibiotics and fluids.
--- NOTE | 2018-01-18 16:06 | OB/GYN History & Physical ---
Date of Encounter: 01/18/18 Time of Encounter: 16:04 Assessment and Plan (1) Abdominal pain Current visit: Yes Status: Acute WBC's improving. Pt afebrile. Will repeat labs now and consider discharge home with PO antibiotics and pain medication if continuing to improve. (2) Hydrosalpinx Current visit: No Status: Acute (3) PID (acute pelvic inflammatory disease) Current visit: No Status: Acute History of Present Illness Chief complaint: abdominal pain HPI: Ms. Damon is a 42 year old female who presented to ER for abdominal pain. Patient is generally in good health, with no significant past medical history. She was admitted for PID with hydrosalpinx on 01/16/18 and was subsequently discharged the from hospital yesterday with by mouth antibiotic. While inpatient she was found to have WBCs 20 which improved to 12. She also had mild bilirubinemia. She states she was feeling better at the time of discharge but several hours after she got home she started to have abdominal pain again as well as fever. No nausea, no vomiting, no urinary symptoms. She reports that the pain is worse on her right than her left and involves her entire abdomen. She also reports constipation with no BM for the last 3 days. In the emergency room, abdominal CT re-demonstrated pelvic inflammation, improvement in appendix , and now shows some gallbladder sludge. US shows left hydrosalpinx and free fluid. WBCs now 11. Pt reports pain has again improved since admission but is concerned that the pain will worsen again in the night. She is questioning the origin of her infection. She does note that her periods have been heavier for the last few months and therefore she has been using tampons when her flow is heavy. Prior to the last few months she had not used tampons for years. Past Med Surg Social Fam HX - Past Medical History Medical history: no medical history, non-contributory Psychiatric history: no psych history - Social History Smoking Status: Never smoker Smokeless Tobacco Status: No Alcohol use: none Drug use: none - Family History Father Adopted: [place]: Daniel Uriostegui Age: 63 Family Member Ethnicity: Non- Living Status: Still Living Hx Family Cardiac Disorders: Yes (HTN) Hx Family Respiratory Disorders: No Hx Family Cancer: No Hx Family GI Disorders: No Hx Family Genitourinary Disorders: No Hx Family Endocrine Disorder: Yes (Diabetes) Hx Family Musculoskeletal Disorders: No Hx Family Neuromuscular Disorders: No Hx Family Neurologic Disorders: No Hx Family HEENT Disorders: No Hx Family Autoimmune Disorders: No Hx Family Reproductive Disorders: No Hx Family Psychosocial Disorders: No Hx Family Medical Disorders: No Mother Adopted: [place]: Lulu Uriostegui Age: 61 Family Member Ethnicity: Non- Living Status: Still Living Hx Family Respiratory Disorders: Yes (Asthma) Hx Family Cancer: No Hx Family GI Disorders: No Hx Family Genitourinary Disorders: No Hx Family Endocrine Disorder: No Hx Family Musculoskeletal Disorders: No Hx Family Neuromuscular Disorders: No Hx Family Autoimmune Disorders: Yes (Rheumatoid) Hx Family Reproductive Disorders: No Hx Family Psychosocial Disorders: No Hx Family Medical Disorders: No (back surgery) Medications and Allergies Levofloxacin [Levaquin] 500 mg PO DAILY #14 tablet 01/18/18 [Rx] Oxycodone HCl/Acetaminophen [Percocet 5-325 mg Tablet] 1 each PO Q6HR PRN 3 Days #12 tablet 01/18/18 [Rx] metroNIDAZOLE [Flagyl] 500 mg PO DAILY #14 tablet 01/18/18 [Rx] 3 Allergy/AdvReac Type Severity Reaction Status Date / Time Penicillins Allergy Rash Verified 01/18/18 09:19 Review of System OB - Constitutional Constitutional ROS IM: fever(s) - Respiratory Respiratory: dyspnea (dyspnea last evening when pain was severe) - Gastrointestinal Gastrointestinal: abdominal pain, change in bowel habits, constipation, no diarrhea, no nausea, no vomiting - Genitourinary Genitourinary: no dysuria - Menstruation Menstruation: as per HPI, period heavy - Psychiatric Psychiatric: other (no history of substance abuse or drug seeking behavior, OARRS reviewed and negative) Exam - Vital Signs Vital signs: Initial Vital Signs Temp Pulse Resp BP Pulse Ox 98.9 F 98 18 92/52 95 01/17/18 21:55 01/17/18 21:55 01/17/18 21:55 01/17/18 21:55 01/17/18 21:55 - Constitutional Constitutional: well developed, well nourished, no acute distress - HEENT HEENT: Mucus Membranes Moist - Lungs Respiratory exam: CTAB - Cardiovascular Cardiovascular exam: RRR, +S1, +S2 - Abdomen Abdomen: Present: bowel sounds normal, diffuse tenderness (R>L) - Extremities Extremities exam: normal inspection Results Result Diagrams: 01/18/18 16:00 01/17/18 22:37 Abnormal lab results WBC 11.7 K/mcL (4.3-11.1) H 01/17/18 22:37 RBC 3.67 M/mcL (3.82-4.97) L 01/17/18 22:37 Hct 33.2 % (35.3-44.9) L 01/17/18 22:37 Plt Count 138 K/mcL (140-400) L 01/17/18 22:37 Neutrophils # 9.8 K/mcL (1.6-8.9) H 01/17/18 22:37 Chloride 111 mEq/L (98-107) H 01/17/18 22:37 Carbon Dioxide 18 mEq/L (23-29) L 01/17/18 22:37 Glucose 125 mg/dL (70-105) H 01/17/18 22:37 Calcium 8.1 mg/dL (8.6-10.3) L 01/17/18 22:37 Urine Clarity Cloudy (Clear) A 01/17/18 22:11 Ur Specific [place] 1.007 (1.010-1.025) L 01/17/18 22:11 Urine Urobilinogen 4.0 mg/dL (Normal) H 01/17/18 22:11 Ur Squamous Epith Cells Moderate per lpf (None-Few) H 01/17/18 22:11 Urine Yeast Few per hpf (None Seen) H 01/17/18 22:11 All other labs normal.
[2018-01-18 16:19] LABS: Basophils % 0.2 %; Eosinophils % 0.4 %; Hematocrit 32.5 % (35.3-44.9); Hemoglobin 10.9 g/dL (11.5-15.4); Immature Granulocytes % 0.5 % (0-4); Lymphocytes # 0.5 K/mcL (0.6-4.6); Lymphocytes % 5.1 %; Mean Corpuscular HGB Conc 33.5 g/dL (31.6-35.5); Mean Corpuscular Hemoglobin 30.4 pg (28.0-33.3); Mean Corpuscular Volume 90.5 fL (83.0-100.0); Mean Platelet Volume 11.7 fL (9.4-12.4); Monocytes # 0.6 K/mcL (0.0-1.3); Monocytes % 6.7 %; Neutrophils # 8.2 K/mcL (1.6-8.9); Platelet Count 150 K/mcL (140-400); Red Blood Count 3.59 M/mcL (3.82-4.97); Red Cell Distribution Width 12.9 % (11.5-14.5); Segmented Neutrophils % 87.1 %
[2018-01-18 16:38] VITALS: BP 107/69
[2018-01-18 16:39] LABS: Albumin 3.2 g/dL (3.5-5.7); Albumin/Globulin Ratio 1.1 (1.1-2.2); Bilirubin,Direct 0.4 mg/dL (0.0-0.2); Bilirubin,Indirect 0.8 mg/dL (0.0-1.2); Bilirubin,Total 1.2 mg/dL (0.3-1.0); Globulin 2.8 g/dL (2.4-3.5)
--- NOTE | 2018-01-18 19:36 | Discharge Summary ---
Date of Encounter: 01/18/18 Time of Encounter: 19:39 - Discharge Diagnosis (1) Abdominal pain Priority: Secondary Status: Acute Qualifiers: Abdominal location: lower abdomen, unspecified Qualified Code(s): R10.30 - Lower abdominal pain, unspecified (2) Hydrosalpinx Priority: Secondary Status: Acute (3) PID (acute pelvic inflammatory disease) Priority: Primary Status: Acute Comments: Pt reports sx have significantly improved. Plan to discharge home on Levaquin and Flagyl. Will also rx Percocet for pain. POC per Dr. Pérez. Pt has follow-up scheduled with her primary OBGYN on Tuesday. - Discharge Medications Prescriptions: Oxycodone HCl/Acetaminophen [Percocet 5-325 mg Tablet] 1 each PO Q6HR PRN 3 Days #12 tablet PRN Reason: Severe Pain Levofloxacin [Levaquin] 500 mg PO DAILY #14 tablet metroNIDAZOLE [Flagyl] 500 mg PO DAILY #14 tablet Home Medications: Levofloxacin [Levaquin] 500 mg PO DAILY #14 tablet 01/18/18 [Rx] Oxycodone HCl/Acetaminophen [Percocet 5-325 mg Tablet] 1 each PO Q6HR PRN 3 Days #12 tablet 01/18/18 [Rx] metroNIDAZOLE [Flagyl] 500 mg PO DAILY #14 tablet 01/18/18 [Rx] Allergies/Adverse Reactions: 3 Allergy/AdvReac Type Severity Reaction Status Date / Time Penicillins Allergy Rash Verified 01/18/18 09:19 Data Procedures and tests throughout hospitalization: Laboratory Tests 01/18/18 01/18/18 01/18/18 16:00 16:00 18:35 WBC 9.5 RBC 3.59 L Hgb 10.9 L Hct 32.5 L MCV 90.5 MCH 30.4 MCHC 33.5 RDW 12.9 Plt Count 150 MPV 11.7 Immature Gran % 0.5 Seg Neutrophils % 87.1 Lymphocytes % 5.1 Monocytes % 6.7 Eosinophils % 0.4 Basophils % 0.2 Neutrophils # 8.2 Lymphocytes # 0.5 L Monocytes # 0.6 Eosinophils # 0.0 Basophils # 0.0 POC Glucose 63 L Total Bilirubin 1.2 H Direct Bilirubin 0.4 H Indirect Bilirubin 0.8 AST 16 ALT 16 Alkaline Phosphatase 69 Serum Total Protein 6.0 L Albumin 3.2 L Globulin 2.8 Albumin/Globulin Ratio 1.1 Amylase 14 L Lipase 8 L Labs on day of discharge: Labs from last 24 hours 01/18/18 01/18/18 01/18/18 18:35 16:00 16:00 WBC 9.5 RBC 3.59 L Hgb 10.9 L Hct 32.5 L MCV 90.5 MCH 30.4 MCHC 33.5 RDW 12.9 Plt Count 150 MPV 11.7 Immature Gran % 0.5 Seg Neutrophils % 87.1 Lymphocytes % 5.1 Monocytes % 6.7 Eosinophils % 0.4 Basophils % 0.2 Neutrophils # 8.2 Lymphocytes # 0.5 L Monocytes # 0.6 Eosinophils # 0.0 Basophils # 0.0 POC Glucose 63 L Total Bilirubin 1.2 H Direct Bilirubin 0.4 H Indirect Bilirubin 0.8 AST 16 ALT 16 Alkaline Phosphatase 69 Serum Total Protein 6.0 L Albumin 3.2 L Globulin 2.8 Albumin/Globulin Ratio 1.1 Amylase 14 L Lipase 8 L - Impressions ITS Impressions Abdomen/Pelvis/Transvag US 01/18/18 10:00 IMPRESSION: Pelvic ultrasound demonstrates a dilated fallopian tube on the left, measuring up to 5 cm in size, with hyperemic flow seen in the adnexum bilaterally. Internal echoes are noted within the dilated left fallopian tube, concerning for possible pyosalpinx in the setting of pelvic inflammatory disease. The distended fallopian tube on the right is better appreciated on recent CT imaging with contrast. Arterial and venous flow maintain to both ovaries. Small left corpus luteal cyst. Small amount of fluid noted within the endometrium. D/ / Cheo Simon MD / Cheo Simon MD Interpreting Provider: Cheo Simon MD Date of admission: 01/18/18 04:43 Primary care physician: Daniel Coronado MD Discharging clinician: Vilma Reis (Beto consulted) - Patient Status Disposition: Home, Self-Care Condition: Good Functional capacity at discharge: independent ambulation Overall status at discharge: patient is progressing back to baseline - Discharge Instructions Follow Up With: Daniel Coronado MD [Primary Care Provider] - Antonio Snyder MD [Non-Partnered Physician] - - Diet and Activity Activity: increase activity as tolerated Diet: regular diet Hospital Course [employer] Time Attestation: Total time spent providing and/or coordinating discharge services: Exam - Constitutional Vitals: Temp Pulse Resp BP Pulse Ox 99.2 F 91 18 107/69 98 01/18/18 16:37 01/18/18 16:37 01/18/18 16:37 01/18/18 16:37 01/18/18 16:37 General appearance IM: A&O X 3, pleasant, no acute distress - Respiratory Respiratory exam: Present: CTAB - Cardiovascular Cardiovascular exam IM: Present: RRR, +S1, +S2 - GI/Abdominal GI/Abdominal exam IM: normal bowel sounds, soft, tenderness (tenderness improving per pt report) - Extremities Exam Extremities exam IM: Present: normal inspection - Neurological Exam Neurological exam: normal gait, oriented X3
[2018-01-19] MEDS ORDERED: Doxycycline 100 MG in 0.9 % Sodium Chloride Mini Bag 100 ML IVPB SCH (01:00)
== END 2018-01-18 20:35 | disposition home or self-care (01) | DRG 758 ==
LOC: 3ANU 21:54 → EMEROO 21:54 → 3ANU 01-18 03:28
PROVIDERS: ADMIT Internal Medicine; ATTEND Family Medicine